=== PATIENT | male | born 1950 | race Caucasian/White ===

== ENCOUNTER → 2016-09-14 | Outpatient (CLI) | payer BC ==
[~2016-09-14] MED LIST: ADVIN25050 INH; AMIT25TA19 PO; ASPI81TA28 PO; ATOR-22 PO; GLUCTAB18 PO; INSU1INJ2 SC; INSUINJ4 SC; KETO1DRO13 OPB; LISI-725 PO; METO50TA7 PO; MISC1CAP60 PO; OMEG10007 PO; PRLSR20 PO; SPIR25TA PO; ZOLP10TA6 PO
== END | disposition home or self-care (01) ==
LOC: C.LAB 07:00
PROVIDERS: ATTEND Physician Assistant
DX: R19.7 Diarrhea, unspecified (principal)

== ENCOUNTER → 2016-10-15 | Outpatient (CLI) | payer BC ==
[2016-10-15 10:55] LABS: BASO % 0.5 %; BASO ABS # 0.03 K/uL (0-0.2); COMPLETE YES; EOS % 2.9 %; HEMATOCRIT 39.8 % (42-52); IG% 0.4 %; LYMPH % 32.8 %; MEAN CELL VOLUME 89.8 fL (80-100); MEAN CORPUSCULAR HEMOGLOBIN 31.2 pg (25-34); MEAN CORPUSCULAR HGB CONC 34.7 g/dl (32-36); MEAN PLATELET VOLUME 9.3 fL (7.4-10.4); MONO % 7.8 %; NEUT % 55.6 %; PLATELET COUNT 215 K/uL (130-400); RED BLOOD COUNT 4.43 M/uL (4.7-6.1); WHITE BLOOD COUNT 5.49 K/uL (4.8-10.8)
[2016-10-15 11:17] LABS: ALT/SGPT 57 U/L (12-78); AST/SGOT 20 U/L (15-37); BLOOD UREA NITROGEN 17 mg/dl (7-18); BUN/CREATININE RATIO 15.1 (10-20); CALCIUM 8.7 mg/dl (8.5-10.1); CARBON DIOXIDE 23 mmol/L (21-32); CHLORIDE 108 mmol/L (98-107); GLUCOSE 113 mg/dl (70-99); POTASSIUM 4.1 mmol/L (3.5-5.1); SODIUM 139 mmol/L (136-145)
[2016-10-15 11:22] LABS: ALB/GLOB RATIO 1.4 (0.9-2); ALKALINE PHOSPHATASE 55 U/L (45-117); CHOLESTEROL 187 mg/dl (0-200); CHOLESTEROL/HDL RATIO 4.5; HDL CHOLESTEROL 42 mg/dl; LDL CHOLESTEROL CALCULATED 122 mg/dl; TRIGLYCERIDES 114 mg/dl (0-150); VERY LOW DENSITY LIPOPROT CALC 23 mg/dl
[2016-10-15 11:35] LABS: ESTIMATED AVERAGE GLUCOSE 154 mg/dl; HA1C FLAG Normal (Normal)
--- NOTE | 2016-10-20 13:53 | CODING QUERY MEDICAL NECESSITY ---
CQSUPPORTING DIAGNOSIS NEEDED A supporting diagnosis is required for the test/procedure performed on this patient in order for us to be reimbursed by the patient's insurance. Please provide a supporting diagnosis for the following test/procedure listed below next to the test name along with your signature. *If there is no additional diagnosis for this patient that would support the following test/procedure please document that below next to the test/procedure. Test(s)/Procedure(s) that require a supporting diagnosis: DOS 10/15/16 PROSTATE SPECIFIC ANTIGEN Provider Signature: Date: Thank you Lizzie Ling [employer] Once completed, please kindly fax back to [phone] For questions please call [phone]
== END | disposition home or self-care (01) ==
LOC: C.LABBC 07:42
PROVIDERS: ATTEND Internal Medicine
DX: E11.42 Type 2 diabetes mellitus with diabetic polyneuropathy (principal); Z12.5 Encounter for screening for malignant neoplasm of prostate

== ENCOUNTER → 2017-05-31 | Outpatient (CLI) | payer OTHER ==
[~2017-05-31] MED LIST changes: -METO50TA7 PO; +METO50TA8 PO
--- NOTE | 2017-05-31 16:51 | DIAGNOSTIC IMAGING REPORT ---
CHEST 2 VIEWS ROUTINE CLINICAL HISTORY: R05 [id number] URI (upper respiratory infection)[id number] dyspnea COMPARISON STUDY: 01/06/2015 FINDINGS: The bones soft tissues and hemidiaphragms are normal. The cardiomediastinal silhouette is normal. The lungs are clear. The pulmonary vasculature is normal. IMPRESSION: Negative chest. The above report was generated using voice recognition software. It may contain grammatical, syntax or spelling errors. Electronically signed by: Archie You M.D. 05/31/2017 4:49 PM Dictated Date/Time: 05/31/2017 4:49 PM
== END | disposition home or self-care (01) ==
LOC: C.RADBC 16:07
PROVIDERS: ATTEND Internal Medicine
DX: J06.9 Acute upper respiratory infection, unspecified (principal); R05 Cough

== ENCOUNTER → 2017-10-16 | Outpatient (CLI) | payer OTHER | END | disposition home or self-care (01) | LOC: C.LABSPEC 10:45 | PROVIDERS: ATTEND Physician Assistant Medical | DX: R19.7 Diarrhea, unspecified (principal) ==

== ENCOUNTER 2018-07-06 05:21 | Inpatient (IN) ==
--- NOTE | 2018-06-19 08:59 | PAT Medication Instructions ---
Medication Instructions Date of Service June 19, 2018 Home Medications amitriptyline 25 mg PO QDL ascorbic acid (vitamin C) [Vitamin 1 dose PO TID aspirin [Aspir-81] 81 mg PO TID atorvastatin 20 mg PO PM calcium carbonate-vitamin D3 1 tab PO TID cetirizine [Zyrtec] 1 dose PO QAM fluticasone propion-salmeterol 1 inh INHALATION BID fluticasone propionate [Flonase 2 spray INTRANASAL BID insulin aspart U-100 [Novolog 10 - 15 unit SUBCUT TID PRN insulin glargine [Basaglar KwikPen 18 unit SUBCUT BID lisinopril [Zestril] 20 mg PO QAM metoprolol succinate [Toprol XL] 50 mg PO QAM omega 9-deq-ziq-fish oil [Fish Oil] 1 cap PO TID omeprazole magnesium [Prilosec OTC] 20 mg PO QDL saw palmetto 1 dose PO QDL spironolactone 25 mg PO QAM ASK your prescriber and surgeon aspirin [Aspir-81] 81 mg PO TID STOP taking 2 weeks before surgery (or as soon as possible if surgery is within 2 weeks) omega 6-qfe-utz-fish oil [Fish Oil] 1 cap PO TID saw palmetto 1 dose PO QDL DO NOT take the morning of surgery ascorbic acid (vitamin C) [Vitamin 1 dose PO TID calcium carbonate-vitamin D3 1 tab PO TID cetirizine [Zyrtec] 1 dose PO QAM insulin aspart U-100 [Novolog 10 - 15 unit SUBCUT TID PRN lisinopril [Zestril] 20 mg PO QAM spironolactone 25 mg PO QAM Take morning of surgery With a small sip of water, OTHERWISE NOTHING TO EAT OR DRINK AFTER MIDNIGHT: amitriptyline 25 mg PO QDL fluticasone propion-salmeterol 1 inh INHALATION BID fluticasone propionate [Flonase 2 spray INTRANASAL BID metoprolol succinate [Toprol XL] 50 mg PO QAM omeprazole magnesium [Prilosec OTC] 20 mg PO QDL Take evening before surgery ascorbic acid (vitamin C) [Vitamin 1 dose PO TID atorvastatin 20 mg PO PM calcium carbonate-vitamin D3 1 tab PO TID fluticasone propion-salmeterol 1 inh INHALATION BID fluticasone propionate [Flonase 2 spray INTRANASAL BID insulin aspart U-100 [Novolog 10 - 15 unit SUBCUT TID PRN (if needed) insulin glargine [Basaglar KwikPen 18 unit SUBCUT BID Insulin Dependent Diabetic Patients * Test your blood sugar the morning of surgery * If Blood Sugar is GREATER THAN 150, take HALF of your regular dose of: insulin glargine [Basaglar KwikPen take 9 units * If Blood Sugar is LESS THAN 150, DO NOT TAKE ANY: insulin glargine [Basaglar KwikPen Other Notes If you have any questions please call us at [phone] or [phone] or [phone] or [phone]
--- NOTE | 2018-06-19 09:15 | Anesthesiology Consultation ---
Date of Service June 19, 2018 Assessment & Plan (1) Encounter for pre-operative examination: Chart Review Chart Review: Patient seen in Pre Admission Testing Consults Requested none Teaching & Discussion Pre-Anesthesia Teaching/Discussion Notes: Instructed NPO after midnight before surgery, except medications with 15 cc of water. Medication instructions provided according to the PAT guidelines. History Surgery Operation Date: 07/06/18 12:30 Proposed Procedures p Left Total Knee Arthroplasty - Rich Espinoza MD Height/Weight Height: 5 ft 11 in Weight: 99.6 kg Allergies Allergy/AdvReac Type Severity Reaction Status Date / Time latex Allergy Unknown Rash Verified 06/12/18 09:04 nickel Allergy Unknown "SKIN Verified 06/12/18 09:54 BUBBLES UP" Penicillins Allergy Unknown "HIVES IN Verified 06/12/18 09:11 EARS" acetaminophen [From Vicodin] AdvReac Unknown "SWEATY, Verified 06/12/18 09:53 FAINTY" adhesive AdvReac Unknown RED ITCHY Verified 06/12/18 09:06 SKIN, RASH hydrocodone [From Vicodin] AdvReac Unknown "SWEATY, Verified 06/12/18 09:53 FAINTY" meperidine AdvReac Unknown VOMITS Verified 06/12/18 09:04 metronidazole AdvReac Unknown Diarrhea Verified 06/12/18 09:04 Preston Pepper Allergy Unknown VOMITS Uncoded 06/12/18 09:04 RED CONTRAST AdvReac Unknown VOMITS Uncoded 06/12/18 09:08 Medications Home Medications Medication Instructions Recorded Confirmed Last Taken amitriptyline 25 mg PO QDL 06/12/18 06/12/18 06/11/18 ascorbic acid (vitamin C) [Vitamin 1 dose PO TID 06/12/18 06/12/18 Unknown C] aspirin [Aspir-81] 81 mg PO TID 06/12/18 06/12/18 06/12/18 atorvastatin 20 mg PO PM 06/12/18 06/12/18 06/11/18 calcium carbonate-vitamin D3 1 tab PO TID 06/12/18 06/12/18 06/12/18 [Caltrate with Vitamin D3] cetirizine [Zyrtec] 1 dose PO QAM 06/12/18 06/12/18 06/12/18 fluticasone propion-salmeterol 1 inh INHALATION BID 06/12/18 06/12/18 Unknown [Advair Diskus] fluticasone propionate [Flonase 2 spray INTRANASAL BID 06/12/18 06/12/18 06/12/18 Allergy Relief] insulin aspart U-100 [Novolog 10 - 15 unit SUBCUT TID PRN 06/12/18 06/12/18 Unknown Flexpen U-100 Insulin] insulin glargine [Basaglar KwikPen 18 unit SUBCUT BID 06/12/18 06/12/18 06/12/18 U-100 Insulin] lisinopril [Zestril] 20 mg PO QAM 06/12/18 06/12/18 06/12/18 metoprolol succinate [Toprol XL] 50 mg PO QAM 06/12/18 06/12/18 06/12/18 omega 9-wnb-qfc-fish oil [Fish Oil] 1 cap PO TID 06/12/18 06/12/18 06/12/18 omeprazole magnesium [Prilosec OTC] 20 mg PO QDL 06/12/18 06/12/18 06/11/18 saw palmetto 1 dose PO QDL 06/12/18 06/12/18 06/11/18 spironolactone 25 mg PO QAM 06/12/18 06/12/18 06/12/18 arginine (L-arginine) 500 mg PO QDL 06/19/18 06/19/18 Unknown Past Medical History Medical History Acid reflux Asthma "EXCERCISE ASTHMA" Diabetes Fatty pancreas History of blood clots "90% FEMORAL VEIN CLOTTED UP" - RIGHT LEG - 2008 History of cardiomyopathy HX OF "IDIOPATHIC CARDIOMYOPATHY DOWNGRADED IN 2002 TO HYPERTENSION" History of chemotherapy History of colon cancer History of depression History of pulmonary embolism 2008 Kidney cysts SCAR TISSUE BOTH KIDNEYS Neuropathy Osteoarthritis Torn ACL LEFT KNEE Past Surgical History Surgical History History of arthroscopy of left knee X3 History of bilateral cataract extraction History of cardiac cath 1997 - [place], DX CARDIOMYOPATHY History of colon resection History of colonoscopy MULTIPLE History of knee surgery X4 RIGHT History of lipoma History of sinus surgery History of total right knee replacement (TKR) Past Anesthesia History No Hx of Anesthesia Complications and No Family Hx of Anesthesia Complications History of PONV No Motion Sickness Screening History of Motion Sickness: No Social History Smoking Status: Former smoker tobacco type: cigarettes Do You Dip or Chew Tobacco: No Smoking End Date: HX SMOKING 18 YRS - QUIT AGE 38 Hx Alcohol Use: Yes Alcohol type: beer alcohol intake frequency: a few times a month Hx Substance Use: No substance use type: does not use Exercise / Class Metabolic Activity II 4-5 Yardwork/Stairs/Walk up hill (Walks 2-3 miles per day. Does recumbant bike daily. Able to climb FOS. Denies CP or SOB. ) Review of Systems Patient denies chest pain, shortness of breath, dyspnea on exertion, cough, wheezing, palpitations. +(knees, left elbow) +acid reflux (controlled with medication) Physical Exam Vital Signs BP: 131/79 P: 67 R: 16 T: 97.9 SPO2: 97% on RA ENMT Thyromental Distance: > or= 3.5 Finger Breadths (3.5) Mallampati Class: I Neck normal visual inspection, trachea midline and + facial hair (Advised); neck extension not limited Respiratory normal respiratory effort Auscultation: lungs clear to auscultation bilaterally Cardiovascular Rate/Rhythm: regular rate and regular rhythm Heart Sounds: no murmur Vessels: no carotid bruit Neurologic moves all extremities Psychiatric Orientation: alert and oriented x 3 Testing Electrocardiogram Date: 06/19/18 Findings: + NSR @ (67) and + no change from (12/03/14) Chest X-Ray Date: 06/19/18 Findings: + NAD FINDINGS: The lungs are clear. Cardiac silhouette is normal in size. No pleural effusions. No pneumothorax. IMPRESSION: No acute process. Laboratory Results 06/19/18 09:50 06/19/18 09:50 Blood Type A Positive 06/19/18 09:50 Antibody Screen NEGATIVE 06/19/18 09:50 PT 10.3 Seconds (9.0-12.0) 06/19/18 09:50 INR 1.0 (0.9-1.1) 06/19/18 09:50 APTT 22.2 Seconds (21.0-31.0) 06/19/18 09:50 Hemoglobin A1c 7.1 % (4.5-5.6) H 06/19/18 09:50
--- NOTE | 2018-06-19 10:24 | XRay Report ---
XR chest Pre-admission PA/Lat HISTORY: Preop. COMPARISON: Chest 05/31/2017. FINDINGS: The lungs are clear. Cardiac silhouette is normal in size. No pleural effusions. No pneumot horax. IMPRESSION: No acute process. Electronically signed by: Lalo Knight M.D. 06/19/2018 10:22 AM
[2018-06-19 10:33] LABS: Basophils # (auto) 0.02 K/uL (0-0.2); Basophils % (auto) 0.3 %; Eosinophils # (auto) 0.11 K/uL (0-0.5); Eosinophils % (auto) 1.8 %; Hematocrit (blood only) 40.8 % (42-52); Hemoglobin 14.5 g/dL (14.0-18.0); Immature Granulocytes # (auto) 0.01 K/uL (0.00-0.02); Immature Granulocytes % (auto) 0.2 %; Lymphocytes # (auto) 1.95 K/uL (1.2-3.4); Lymphocytes % (auto) 31.7 %; Mean Corpuscular Hgb Conc 35.5 g/dL (32-36); Mean Corpuscular Volume 88.5 fL (80-100); Mean Platelet Volume 9.1 fL (7.4-10.4); Monocytes # (auto) 0.42 K/uL (0.11-0.59); Monocytes % (auto) 6.8 %; Neutrophils # (auto) 3.65 K/uL (1.4-6.5); Neutrophils % (auto) 59.2 %; Platelet Count 213 K/uL (130-400); RDW Coefficient of Variation 13.1 % (11.5-14.5); RDW Standard Deviation 41.9 fL (36.4-46.3); Red Blood Count 4.61 M/uL (4.7-6.1); White Blood Count 6.16 K/uL (4.8-10.8)
[2018-06-19 10:41] LABS: BUN Creatinine Ratio 17.4 (10-20); Blood Urea Nitrogen 18 mg/dl (7-18); Carbon Dioxide 27 mmol/L (21-32); Chloride 106 mmol/L (98-107); Creatinine Clr Calc Pharmacy 86.5 ml/min; Est GFR (African American) 89.4; Est GFR (Non-African American) 77.1; Glucose 139 mg/dl (70-99); Potassium 4.7 mmol/L (3.5-5.1); Sodium 136 mmol/L (136-145)
[2018-06-19 10:44] LABS: C Reactive Protein < 0.29 mg/dl (0-0.29)
[2018-06-19 10:54] LABS: Partial Thromboplastin Ratio 0.8; Partial Thromboplastin Time 22.2 Seconds (21.0-31.0); Prothrombin Time 10.3 Seconds (9.0-12.0)
[2018-06-19 12:25] LABS: Estimated Average Glucose 157 mg/dl; Hemoglobin A1C 7.1 % (4.5-5.6)
--- NOTE | 2018-06-29 08:54 | History and Physical Report ---
DATE OF ADMISSION: 07/06/2018 CHIEF COMPLAINT: Left knee pain, discomfort and instability. 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 He is referred by my partner Dr. Elam. He has got a long history of knee problems and actually had 5 knee surgeries on the right side and eventually had a knee replacement done by Dr. Walter in 2006. He has done pretty well from this side. With respect to his left knee, he injures back in 1968 when he got hit from behind playing football in high school. He tore his meniscus in 1995 and had first operation in [place]. He had another surgery on this knee by Dr. Cool in 2004 and a third knee surgery done by Dr. Elam in 2005. He has done okay, but continues to have persistent pain, discomfort and instability that he describes it has gotten worse over time. 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 The knee gives out on him. When he twisted, it swells up and get sore for about 3 or 4 weeks and then calms down. He has had multiple conservative modalities including injections which provided temporary relief only. He is trying to stay active, but it is becoming more difficult doing that. He takes various anti-inflammatories with minimal relief. He would like to proceed with definitive treatment. PAST MEDICAL HISTORY: Significant for: 1. Colon cancer stage III in remission without recurrence. 2. History of cardiomyopathy, which is now resolved. 3. 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 4. Low back pain. 5. Torticollis. 6. Gastroesophageal reflux disease. PAST SURGICAL HISTORY: Previous surgeries include: 1. Left knee surgery x3 as described above. 2. Right knee surgery x5. 3. Colon resection. ALLERGIES: PENICILLIN, DEMEROL, FLAGYL, LATEX AND NICKEL. CURRENT MEDICINES: Include: 1. Metoprolol 50 mg a day. 2. Lipitor 20 mg a day. 3. Spironolactone 25 mg. 4. Lisinopril 20 mg. 5. Omeprazole 20 mg. 6. Zyrtec 10 mg. 7. Advair. 8. Amitriptyline. 9. NovoLog insulin. 10. Basaglar. SOCIAL HISTORY: A 67-year-old male. 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 FAMILY HISTORY: Significant for heart disease, diabetes, pancreatic cancer. REVIEW OF SYSTEMS: Significant for colon cancer. He does have a history of 1 blood clot in his leg with his colon surgery, but nothing since. No known clotting disorders. He has been through knee replacement on this side without anticoagulation. Denies any chest pain or shortness of breath. PHYSICAL EXAMINATION: GENERAL: Reveals a pleasant, middle-aged male. Looks to be in good health. HEENT: Benign. NECK: Supple, no lymphadenopathy. LUNGS: Clear to auscultation. HEART: Regular rate and rhythm. ABDOMEN: Soft, nontender, nondistended. EXTREMITIES: Grossly neurovascularly intact except as follows: Examination of the left knee reveals the patient walks independently. Walks with just a slight bit of a limp. He has got a trace knee effusion. His range of motion is 0-125 degrees. He does have a positive Dnaae and a grade 2 pivot. No varus or valgus instability. Scott's causes pain, but no mechanical symptoms. He has got no pain with hip motion. X-RAYS: X-rays of the left knee from previous reviewed. Shows some moderate DJD of the knee. He has got some tibial femoral subluxation. He has got chronic chondrocalcinosis. ASSESSMENT: A 67-year-old gentleman with a history of colon cancer in the past as well as a right knee replacement with persistent pain and discomfort in his left knee with a chronic ACL instability and moderate knee arthritis. He has failed all conservative care. He has through 3 previous surgeries on this knee and would like more definitive treatment. His right knee replaced years ago and has done well from this and would like to have his left knee replacement. PLAN: We are going to take him to the operating room and do a left total knee replacement. The risks and benefits of this procedure were explained to the patient including but not limited to DVT, PE, , infection, neurological injury, vascular injury, bleeding problem, pain, limited range of motion, stiffness, failure to relieve symptoms, incomplete relief of symptoms, need for further surgery in the future, fracture, leg length inequality, nerve palsy, persistent instability and incomplete relieve of all symptoms. The patient understands and desires to proceed. Informed consent was obtained. The patient does have this apparent NICKEL ALLERGY. We will use a [employer] knee to avoid any medical issues. We will likely put some vancomycin in his cement due to his multiple surgeries. He is planning to be discharged to home using [facility] home health program. We did talk to him about taking his metoprolol the morning of surgery. We will hold the lisinopril.
--- OUTSIDE RECORDS SUMMARY | 2018-07-06 05:24 | External Medical Summary | Continuity of Care Document ---
:1950 Author Name Nora Barrett, Provider Address Unavailable Unavailable , Care Team Providers Name Role Phone Efrain [email or web address] [email or web address], [email or web address] Efrain Stack M.D. 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) Hyperlipidemia (272.4) (E78.5) Hypertension (401.9) (I10) Cardiomyopathy, nonischemic (425.4) (I42.8) Obstructive sleep apnea (327.23) (G47.33) Cyst of kidney, acquired (593.2) (N28.1) GERD without esophagitis (530.81) (K21.9) Osteoarthritis of knee (715.36) (M17.10) Actinic keratosis (702.0) (L57.0) Peripheral neuropathy (356.9) (G62.9) Exercise-induced asthma (493.81) (J45.990) Insomnia (780.52) (G47.00) Sensory problems with limbs (V49.3) (R20.9) Allergies and Adverse Reactions Demerol TABS (Allergy) Flagyl TABS (Allergy) metFORMIN HCl TABS (Allergy) Reaction: F atigue Penicillins (Allergy) Reaction: Rash Red Dye (Allergy) Medications Advair Diskus 250-50 MCG/DOSE Inhalation Aerosol Powder Breath Activated; INHALE 1 PUFF EVERY 12 HOURS. Arnold Stack 60 Inhaler Pack Quantity: 3 Refills: 3 OneTouch Ultra Blue In Vitro Strip; USE 6 STRIP Daily Arnold Lin rd Start: 06-Dec-2012 Quantity: 600 Refills: 3 Spironolactone 25 MG Oral Tablet; TAKE 1 TABLET DAILY. Arnold Hanks Quantity: 90 Refills: 3 Lisinopril 10 MG Oral Tablet; TAKE 1 TABLET DAILY. Arnold Stack Quantity: 90 Refills: 3 Metoprolol Succinate ER 50 MG Oral Table t Extended Release 24 Hour; TAKE 1 TABLET DAILY. Arnold Stack Quantity: 90 Refills: 3 Atorvastatin Calcium 20 MG Oral Tablet; TAKE ONE TABLE T BY MOUTH ONCE DAILY. Arnold Stack Quantity: 90 Refills: 3 Omeprazole 20 MG Oral Capsule Delayed Release; TAKE 1 CAPSULE DAILY. Arnold Stack Quantity: 90 Refills: 3 Amitriptyline HCl - 25 MG Oral Tablet; Take 1 tablet daily Arnold Gan Quantity: 90 Refills: 1 ZyrTEC Allergy 10 MG Oral Tablet; TAKE 1 TABLET DAILY. Refills: 0 Basaglar KwikPen 100 UNIT/ML Subcutaneou s Solution Pen-injector; INJECT 12 UNIT Twice daily MARCELINA Stiles Start: 20-Feb-2017 Quantity: 3 5 x 3 ML Pen Refills: 3 Fluticasone Propionate 50 MCG/ACT Nasal Suspension; INSTILL 2 SQUIRT Twice daily Arnold Stack Start: 08-Oct-2015 Quantity: 3 16 GM Bottle Refills: 3 Sildenafil Citrate 100 MG Oral Tablet; TAKE 1 TABLET D AILY 1 HOUR BEFORE NEEDED Arnold Stack Start: 21-Mar-2012 Quantity: 10 Refills: 5 OneTouch Basic System w/Device Kit; USE DIRECTED. Arnold Wen Start: 06-Dec-2012 Quantity: 1 Refills: 0 Pen [place] 316" 31G X 5 MM; injects 5x day Arnold Stack Start: 06-Dec-2012 Quantity: 5 100 Unit Box Refills: 3 OneTouch Lancets MISC; Tests 5 x day Arnold Stack Sta rt: 06-Dec-2012 Quantity: 500 Refills: 3 NovoLOG FlexPen 100 UNIT/ML Subcutaneous Solution Pen-injector; INJECT 10-12 UNITS FOUR TIMES DAILY IF >130 Arnold Stack Start: 18-Feb-2014 Quantity: 2 5 x 3 ML Pen Refills: 3 Procedures History of Complete Colonoscopy Status: Completed History of Colon Surgery Status: Complet ed History of Knee Replacement Status: Comp leted History of Sinus Surgery Status: Complet ed Immunizations Pneumo On: 13-Feb-2003 0:00 Td On: 29-Jul-2011 Influenza Comments:Fall 2012 Zoster (Zostavax) On: 06-Dec-2012 11:42 Lot #: [id number], [employer] Zoster (Zostavax) On: 06-Dec-2012 16:05 Lot #: [id number], [employer] Prevnar 13 Intramuscular Suspension On: 12-Sep-2014 8:48 Lot #: [id number], [employer] [place] Influenza On: Nov-2014 Fluzone High-Dose 0.5 ML Intramuscular Suspension Pref illed Syringe On: 18-Nov-2017 Pneumovax 23 25 MCG/0.5ML Injection Injectable On: 24-Nov-19 18 15:31 Lot #: [id number], [employer] Family History Father Family history of Father At Age ___ Status: Active Brother Family history of Cardiomyopathy Status: Active Family history of Diabetes Mellitus (V18.0) Status: Active Social History - Smoking Status Former smoker Plan of Treatment Planned Encounters Appointment; Efrain Stack M.D. Start: 25-Dec-2018 8:15 Re quest Planned Observations Planned Goals not documented Results No Known Results Results not documented Encounters Appointment; Efrain Stack M.D. 24-May-2018 14:45 Encounter Diagnosis: Problem not documented Appointment; Efrain Stack M.D. 23-Nov-2017 14:30 Encounter Diagnosis: Problem not documented Appointment; Efrain Stack M.D. 31-May-2017 15:15 Encounter Diagnosis: Problem not documented Appointment; Efrain Stack M.D. 26-Apr-2017 16:00 Encounter Diagnosis: Problem not documented Appointment; Efrain Stack M.D. 13-Oct-2016 10:30 Encounter Diagnosis: Problem not documented Appointment; Sylvia Matthew PA-C 13-Sep-2016 11:30 Encounter Diagnosis: Problem not documented Appointment; Erfain Stack M.D. 25-Dec-2018 8:15 Encounter Diagnosis: Problem not documented
[2018-07-06] MEDS ORDERED: LR 60ML/HR IV SCH (06:00)
[2018-07-06] MEDS ORDERED: SCOPOLAMINE 1.5 MG TDSY TD SCH (06:00)
[2018-07-06] MEDS ORDERED: FAMOTIDINE 20 MG TAB PO SCH (06:00)
[2018-07-06] MEDS ORDERED: LR 500ML BOLUS, THEN 15ML/HR IV SCH (06:00)
[2018-07-06] MEDS ORDERED: GABAPENTIN 300 MG PO SCH (06:00)
[2018-07-06] MEDS ORDERED: METOCLOPRAMIDE HCL 10 MG TABLET PO SCH (06:00)
[2018-07-06] MEDS ORDERED: BUPIVACAINE LIPOSOME/PF 266 MG, BUPIVACAINE/EPINEPHRINE 50 ML, SODIUM CHLORIDE 0.9% 30 ... INFIL SCH (06:00)
[2018-07-06] MEDS ORDERED: CEFAZOLIN 2000MG 2,000 MG/15 ML SYR IV SCH (06:00)
[2018-07-06] MEDS ORDERED: ACETAMINOPHEN 500 MG TAB PO SCH (06:00)
[2018-07-06] MEDS ORDERED: BUPIVACAINE 0.5 % 5 MG/1 ML PF 10ML VIAL ONE (06:25)
[2018-07-06] MEDS ORDERED: ROPIVACAINE 0.5% 5 MG/ML 30 ML VIAL ONE (06:25)
[2018-07-06] MEDS ORDERED: PROPOFOL IV EMULSION 10 MG/ML 20 ML VIAL IV ONE (06:34)
[2018-07-06] MEDS ORDERED: LIDOCAINE HCL 2% 2 ML VIAL/AMP(20MG/ML) INFIL ONE (06:34)
[2018-07-06] MEDS ORDERED: ePHEDrine sulfate 50 MG/ML AMP IV PRN (06:36)
[2018-07-06] MEDS ORDERED: ONDANSETRON INJ 2 MG/ML 2 ML VIAL IV PRN ×2 (06:36→10:34)
[2018-07-06] MEDS ORDERED: ATROPINE SULFATE 0.1 MG/ML 10ML SYR IV PRN (06:36)
[2018-07-06] MEDS ORDERED: SODIUM CHLORIDE 0.9% PF 50 ML VIAL ONE (06:38)
[2018-07-06] MEDS ORDERED: BACITRACIN INJ 50,000 UNIT VIAL ONE (06:38)
[2018-07-06] MEDS ORDERED: BUPIVACAINE LIPOSOME 1.3% 266 MG/20 ML VIAL ONE (06:38)
[2018-07-06] MEDS ORDERED: BUPIVACAINE 0.25% 30 ML VIAL ONE (06:39)
[2018-07-06] MEDS ORDERED: EPINEPHrine INJ 1 MG/ML AMP ONE (06:39)
[2018-07-06] MEDS ORDERED: MIDAZOLAM HCL 1 MG/ML 2ML VIAL ONE (06:39)
--- NOTE | 2018-07-06 06:44 | History & Physical Bridge Note ---
Date of Service July 06, 2018 History & Physical Bridge Note I have examined the patient, reviewed the History & Physical and in the interval since the performance of the History & Physical I have noted the following changes of clinical significance: no changes noted
[2018-07-06] MEDS ORDERED: VANCOMYCIN HCL 1000MG/20ML VIAL ONE (07:23)
--- NOTE | 2018-07-06 08:41 | Post Operative Brief Note ---
Immediate Post Op Note v1 Date of Surgery July 06, 2018 Pre & Post Diagnosis Operation Date: 07/06/18 07:00 Pre-Op Diagnosis: Left Knee Degenerative Joint Disease Post-Op Diagnosis: Left Knee Degenerative Joint Disease Procedure Operation Date: 07/06/18 07:00 Actual Procedures p Left Total Knee Arthroplasty(Left) - Rich Espinoza MD Surgeon Rich Espinoza MD Acid Operator Dori, PAC Estimated Blood Loss 50 Findings Consistent with Post-Op Diagnosis Fluids 1500 cc Specimens Left Knee Drains Ellis Catheter (16 Polish Latex-free ellis inserted by Luis Alberto Meadows PA-C without difficulty. Clear yellow urine obtained, Anesthesia to monitor) Anesthesia Type Spinal MAC Complications none Disposition Accompanied Patient To Recovery: No Disposition: Recovery Room
--- NOTE | 2018-07-06 09:25 | XRay Report ---
LEFT KNEE 2 VIEWS History: Left total knee arthroplasty. Degenerative arthritis. Postop. FINDINGS: The patient is status post a left total knee arthroplasty. The hardware is intact. No fract ure or dislocation. Skin tania and surgical drains are in place. IMPRESSION: Left total knee arthroplasty. No evidence for hardware complication. Electronically signed by: Lalo Knight M.D. 07/06/2018 9:23 AM
[2018-07-06] MEDS ORDERED: GLUCOSE 10 TABS/TUBE PO PRN (10:34)
[2018-07-06] MEDS ORDERED: GLUCOSE 40% GEL 15 GM TUBE PO PRN (10:34)
[2018-07-06] MEDS ORDERED: PHARMACY GLYCEMIC MGMT CONSULT STA (10:34)
[2018-07-06] MEDS ORDERED: HYDROmorphone INJ 0.5 MG/0.5 ML SYR IV PRN (10:34)
[2018-07-06] MEDS ORDERED: GLUCAGON FOR INJ 1 MG VIAL SQ PRN (10:34)
[2018-07-06] MEDS ORDERED: METOCLOPRAMIDE HCL INJ 5 MG/ML 2 ML VIAL IV PRN (10:34)
[2018-07-06] MEDS ORDERED: DEXTROSE 50% 50 ML SYRINGE IV PRN (10:34)
[2018-07-06] MEDS ORDERED: CARBOHYDRATES FOR HYPOGLYCEMIA PO PRN (10:34)
[2018-07-06] MEDS ORDERED: SODIUM CHLORIDE 0.9% 1000ML 1,000 ML IV SCH (10:34)
[2018-07-06] MEDS ORDERED: ASCORBIC ACID PO SCH (10:34)
[2018-07-06] MEDS ORDERED: NALOXONE HCL 0.4 MG/1 ML VIAL/CARP IV PRN (10:34)
[2018-07-06] MEDS ORDERED: ALUMINUM/MAGNESIUM SUSP 30 ML UDC PO PRN (10:34)
[2018-07-06] MEDS ORDERED: MAGNESIUM HYDROXIDE SUSP 30 ML UDC PO PRN (10:34)
[2018-07-06] MEDS ORDERED: TAMSULOSIN HCL 0.4 MG CAP PO PRN (10:34)
[2018-07-06] MEDS ORDERED: BISACODYL 10 MG SUPP PR PRN (10:34)
[2018-07-06] MEDS ORDERED: CETIRIZINE HCL 10 MG TABLET PO SCH (10:34)
--- NOTE | 2018-07-06 10:42 | Anesthesiology Progress Note ---
Date of Service July 06, 2018 Anesthesia Post Procedure Vital Signs Vital Signs: Temp Pulse Pulse Pulse Resp BP BP 07/06/18 10:32 67 16 123/81 07/06/18 09:50 68 14 07/06/18 09:46 67 13 106/68 07/06/18 09:45 66 13 07/06/18 09:41 67 17 111/65 07/06/18 09:36 68 14 126/70 07/06/18 09:35 69 13 07/06/18 09:31 68 16 111/69 07/06/18 09:30 36.4 C L 67 65 16 111/69 07/06/18 09:26 64 21 112/70 07/06/18 09:22 67 14 07/06/18 09:21 68 21 114/69 07/06/18 09:20 66 18 07/06/18 09:16 67 15 120/71 07/06/18 09:15 67 18 07/06/18 09:11 70 16 115/74 07/06/18 09:06 69 17 117/71 07/06/18 09:05 69 17 07/06/18 09:01 74 16 101/72 07/06/18 09:00 70 13 07/06/18 08:56 72 14 121/73 07/06/18 08:51 71 17 106/64 07/06/18 08:50 77 19 07/06/18 08:47 75 15 107/68 07/06/18 08:46 36.7 C 74 16 107/68 07/06/18 05:47 36.6 C 67 18 138/83 Pulse Ox 07/06/18 10:32 97 07/06/18 09:50 96 07/06/18 09:46 98 07/06/18 09:45 99 07/06/18 09:41 98 07/06/18 09:36 98 07/06/18 09:35 98 07/06/18 09:31 97 07/06/18 09:30 99 07/06/18 09:26 99 07/06/18 09:22 99 07/06/18 09:21 98 07/06/18 09:20 98 07/06/18 09:16 97 07/06/18 09:15 98 07/06/18 09:11 96 07/06/18 09:06 97 07/06/18 09:05 97 07/06/18 09:01 95 07/06/18 09:00 95 07/06/18 08:56 96 07/06/18 08:51 97 07/06/18 08:50 94 07/06/18 08:47 95 07/06/18 08:46 93 07/06/18 05:47 92 Pain Intensity Left Knee: Pain Intensity: 0 Transfer of Care Handoff Completed per policy Notes Mental Status: alert / awake / arousable Patient Amnestic to Procedure: Yes Nausea / Vomiting: adequately controlled Pain: adequately controlled Airway Patency, RR, SpO2: stable & adequate BP & HR: stable & adequate Hydration State: stable & adequate Neuraxial Anesthesia: was administered and sensory block is resolving Anesthetic Complications: no major complications apparent and Pt Satisfied with anesthetic care
[2018-07-06] MEDS ORDERED: PHARMACY GLYCEMIC MGMT CONSULT PRN (10:48)
--- NOTE | 2018-07-06 11:26 | Pharmacy Report ---
Glycemic Control Consultation - Date of Service July 06, 2018 - Scope Scope: Glycemic Pharmacist consulted by Dr Espinoza on 07/06/18 for glycemic control and to write orders per [facility] inpatient glycemic control protocol - Objective Weight: 97.7 kg Accuchecks BSG (last 24hrs): 07/06/18 07/06/18 05:45 09:13 POC Glucose 169 H 129 H HbA1c: Hemoglobin A1c 7.1 % (4.5-5.6) H 06/19/18 09:50 - Recent Pertinent Medications Outpatient Anti-diabetic Regimen: * Basaglar 18 units BID + Novolog 10-15 units TIDM (has not been using) Risk Factors for Insulin Resistance: * Recent Surgery: POD 0 for L knee * Diet: T2DM - Assessment & Plan Assessment & Plan: ASSESSMENT: * Mr Kelsey is a 67 y/o M with a PMH of well controlled T2DM who presents for L knee surgery with Dr Espinoza. Patient did not receive steroids in surgery. His A1C is well controlled. 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 The patient has also not been utilizing Novolog since basaglar increased to 18 units BID. * Estimate that this is the patient's basal rate (36 units). This correlates to weight-based stress of 2. Will provide this stress for Novolog dosing. For Lantus, will provide a scale of 0 units (in case patient's inhouse insulin needs drastically different), 14 units (a modest 20% reduction from home dose in case insulin needs are different), and full home dose of 18 units. * Goal is to have blood sugars below 150 mg/dL ideally but at least below 200 mg to help prevent infection post-operatively. PLAN FOR INPATIENT GLYCEMIC CONTROL: * Basal insulin * Lantus 0-18 units SQ BID (0 units if blood sugar under 120 mg/dL; 14 units if blood sugar 120-160 mg/dL; 18 units if blood sugar greater than 160 mg/dL) * Bolus insulin * NovoLog per scale ACHS or Q6hrs while NPO * Goal Range: Low 110 mg/dL - High 140 mg/dL * Correction Factor: 20 mg/dL/unit * Nutritional / Prandial insulin per carb ratio of 1 unit per 7 grams CHO consumed Recommendations for Outpatient Therapy * Recommend continuing home regimen as HbA1C well controlled. Thank you.
[2018-07-06] MEDS ORDERED: ARGININE 500 MG PO SCH (11:30)
[2018-07-06] MEDS: MULTIVITAMIN TAB PO SCH (11:48)
[2018-07-06] MEDS: SPIRONOLACTONE 25 MG TAB PO SCH (11:48)
[2018-07-06] MEDS: FLUTICASONE PROPIONATE NA SPR 16 GM BTL NAE SCH ×2 (11:48→21:25)
[2018-07-06] MEDS: DOCUSATE SODIUM 100 MG CAP PO SCH ×2 (11:48→21:25)
[2018-07-06] MEDS: LISINOPRIL 20 MG TAB PO SCH (11:48)
[2018-07-06] MEDS: FLUTICASONE/SALMETEROL 250/50 (ADVAIR) 14 PUFF/1 INHALER INH SCH ×2 (11:48→21:24)
[2018-07-06] MEDS: METOPROLOL SUCC 50MG EXT REL TAB PO SCH (11:48)
[2018-07-06] MEDS: AMITRIPTYLINE HCL 25 MG TAB PO SCH (11:49)
[2018-07-06] MEDS: PANTOprazole 40 MG TAB PO SCH (11:52)
[2018-07-06] MEDS: KETOROLAC TROMETHAMINE 15 MG/ML VIAL IV SCH ×3 (11:54→23:57)
[2018-07-06] MEDS: ASPIRIN 81 MG ECTAB PO SCH ×2 (12:41→21:25)
[2018-07-06] MEDS: CALCIUM 600MG + VIT D 400 IU TAB PO SCH ×2 (12:41→21:25)
[2018-07-06] MEDS: ACETAMINOPHEN 500 MG TAB PO SCH ×2 (12:41→21:25)
[2018-07-06] MEDS: INSULIN ASPART 100 UNITS/ML 3 ML PEN SC SCH ×3 (12:44→21:28)
[2018-07-06] MEDS: CHECK SCOPOLAMINE PATCH PLACEMENT SCH ×2 (15:29→23:58)
[2018-07-06] MEDS: CEFAZOLIN 2000MG 2,000 MG/15 ML SYR IV SCH ×2 (15:31→23:57)
[2018-07-06] MEDS: ASCORBIC ACID 500 MG TAB PO SCH (18:16)
[2018-07-06] MEDS: FERROUS GLUCONATE 324 MG TAB PO SCH (18:16)
[2018-07-06] MEDS: OXYCODONE HCL IR 5 MG TAB (IMMEDIATE RELEASE) PO PRN ×2 (18:20→23:57)
[2018-07-06] MEDS ORDERED: INSULIN GLARGINE SOLOSTAR 100 UNITS/ML 3 ML PEN SC SCH (21:00)
[2018-07-06] MEDS ORDERED: SENNA 8.6 MG TAB PO SCH (21:00)
[2018-07-06] MEDS ORDERED: ATORVASTATIN 20 MG TAB PO SCH (21:00)
[2018-07-06] MEDS: TAPENTADOL HCL ER 50 MG TABCR PO SCH (21:31)
--- NOTE | 2018-07-07 01:07 | Operative Report ---
DATE OF OPERATION: 07/06/2018 SURGEON: Rich Espinoza MD [employer]ILER [employer] ROOM OPERATOR: FRANCES Crowder PREOPERATIVE DIAGNOSES: 1. Left knee degenerative joint disease. 2. 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 POSTOPERATIVE DIAGNOSES: 1. Left knee degenerative joint disease. 2. 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 PROCEDURE PERFORMED: Left cemented posterior stabilized total knee arthroplasty. COMPLICATIONS: None. ESTIMATED BLOOD LOSS: 50 mL. FLUID REPLACEMENT: 1500 mL crystalloid fluid replacement. ANESTHESIA: Spinal with an adductor canal block. DRAINS: None. SPECIMENS: Left knee sent for pathology. TOURNIQUET TIME: Six minutes at 300 mmHg. OPERATIVE INDICATIONS: The patient is a 67-year-old very active gentleman who has had a history of multiple knee problems in the past. He underwent 5 right knee surgeries and eventually knee replacement about 12 years ago. He injured his left knee in high school and then had 3 subsequent surgeries on this knee as well. Over the past several years, he has developed increased pain, discomfort, swelling. He has got chronic instability in his knee and it swells up. X-ray shows some moderate DJD with some tibial femoral subluxation. He has failed conservative treatments really affecting his quality of life and he elected to have total knee arthroplasty. He was happy with his knee on the other side. He had failed less invasive surgery. The patient has a history of a questionable nickel allergy, so we used the Reyes and Nephew zirconium knee arthroplasty. OPERATIVE FINDINGS: Operative findings revealed moderate DJD, moderate size knee joint effusion. He has some grade 3 and some focal 4 changes throughout the knee. 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 He did not have any bony eburnation. OPERATIVE IMPLANTS: Operative implant system: 1. Reyes and Nephew Journey size 6 left zirconium posterior stabilized femoral component. 2. Reyes and Nephew size 4 tibial tray. 3. A 10 mm posterior stabilized polyethylene insert. 4. A 32 x 9 all poly patella. OPERATIVE PROCEDURE: The patient was taken to the operating room, identified and placed on the operative table in supine position. All contact areas were appropriately padded. IV antibiotics were provided by anesthesia team. A spinal anesthetic and adductor canal block had been provided in the holding area. Wood catheter was placed in sterile fashion. The left thigh tourniquet was then placed and the left lower extremity was then prepped and draped in the usual sterile fashion. His left leg was elevated and exsanguinated with Esmarch and tourniquet was placed at 300 mmHg. The anterior approach to the left knee was then performed through a longitudinal incision centered over the patella. Sharp dissection was carried through the subcutaneous tissues down to the level of the extensor mechanism. Dissection was carried out medially. The fat pad was resected from beneath the patellar tendon. The lateral patellofemoral ligament was released. The patella was everted and the knee was flexed. The osteophytes were taken off the distal femur. The ACL was chronically absent. The PCL was released from the distal femur and the tibia subluxated anteriorly. The external tibial alignment jig was then placed in the anterior face of the tibia and adjusted 8 mm medially. Proximal tibial cut was made to remove about 2-3 mm of bone from the most deficient aspect of the medial tibial plateau. The tibia was sized to a size 4. Attention was then drawn to the femur. The distal femur was entered with a sharp drill bit and the intramedullary canal was suctioned. A left 6-degree valgus cutting guide was placed. Distal femoral cutting block was pinned in place. Distal femoral cut was made to take an additional 2 mm of bone off the distal femur. The femur was then sized and we sized this to a size 6. We did downsize this slightly, but this is the maximum size we could use with the 4 tibial tray. The AP cutting guide was then pinned parallel to the epicondylar axis, which was about 4-1/2 degrees of external rotation. The posterior cut, posterior chamfer, and then anterior chamfer cuts were made. The knee was flexed. The remnants of the medial and lateral menisci were excised. The osteophytes were taken off the posterior aspect of the femur. A box cutting guide was placed and the box cut was performed. The trochlea was placed. The tibial tray was then pinned in maximum external rotation. The drill and stem punch were used to create a defect in the proximal tibia for the tibial tray. I then trialed the knee and a 10 mm insert fit most appropriately. Attention was then drawn to the patella. The patella was cleaned of all soft tissues. Patella thickness measured 23 mm in thickness, it was cut down to 14. It was sized to a size 32 patella. Lug holes were drilled for a 31 patella. The knee was taken through range of motion and patella tracked nicely with no thumbs test. Attention was then drawn toward placement of permanent components. All trial components were removed. Bone plug was placed in the distal femur to limit blood loss. A double batch of Palacos G cement was mixed. A Reyes and Nephew zirconium size 6 posterior stabilized femoral component, size 4 tibial tray, a 10 mm posterior stabilized polyethylene insert, and a 32 x 9 all poly patella were then cemented in place. Knee was brought out into full extension until the cement hardened. A final cement check was then performed. The pericapsular tissues were injected with a total of 100 mL of a combination of 20 mL of Exparel, 30 mL of normal saline, 50 mL of 0.25% Marcaine with epinephrine. The patient did not receive any tranexamic acid. The tourniquet was then let down for a final tourniquet time of 60 minutes. Hemostasis was assured with use of electrocautery. The extensor mechanism was then closed with a combination of #1 PDS suture and #1 Vicryl suture in a [id number] fashion. Extensor mechanism was checked and found to be intact. Subcutaneous tissues were then closed with #2 Dexon suture in buried interrupted fashion. Skin was closed with skin tania. Leg was then cleaned and dried and a sterile dressing of Xeroform, 4 x 4's, sterile cast padding and Vic bandage were applied. The patient was then transferred to the recovery room in stable condition. The patient tolerated the procedure well with no complications. All needle and sponge counts were correct at the end of the operation. I attest to the content of the Intraoperative Record and any orders documented therein. Any exceptions are noted below. MTDD
[2018-07-07] MEDS: KETOROLAC TROMETHAMINE 15 MG/ML VIAL IV SCH (05:31)
[2018-07-07] MEDS: ACETAMINOPHEN 500 MG TAB PO SCH (05:31)
[2018-07-07 06:27] LABS: Hematocrit (blood only) 33.7 % (42-52); Hemoglobin 12.1 g/dL (14.0-18.0); Mean Corpuscular Hgb Conc 35.9 g/dL (32-36); Mean Corpuscular Volume 88.9 fL (80-100); Mean Platelet Volume 8.9 fL (7.4-10.4); Platelet Count 188 K/uL (130-400); RDW Coefficient of Variation 13.3 % (11.5-14.5); RDW Standard Deviation 43.1 fL (36.4-46.3); Red Blood Count 3.79 M/uL (4.7-6.1); White Blood Count 12.15 K/uL (4.8-10.8)
[2018-07-07 07:00] LABS: BUN Creatinine Ratio 15.1 (10-20); Calcium 8.6 mg/dl (8.5-10.1); Creatinine Clr Calc Pharmacy 65.6 ml/min; Est GFR (African American) 64.7; Est GFR (Non-African American) 55.8; Potassium 4.1 mmol/L (3.5-5.1)
--- NOTE | 2018-07-07 08:04 | Anesthesiology Progress Note ---
Date of Service July 07, 2018 Anesthesia Post Procedure Vital Signs Vital Signs: Temp Pulse Pulse Pulse Resp BP BP 07/07/18 07:01 36.8 C 72 18 117/68 07/07/18 04:04 36.8 C 73 17 100/65 07/06/18 23:19 36.9 C 70 18 96/60 L 07/06/18 19:34 36.7 C 71 16 125/79 07/06/18 15:02 36.6 C 62 16 108/70 07/06/18 13:11 36.3 C L 69 18 116/72 07/06/18 12:05 36.4 C L 62 16 121/75 07/06/18 11:00 62 16 119/70 07/06/18 10:32 67 16 123/81 07/06/18 10:05 36.5 C 68 14 116/68 07/06/18 09:50 68 14 07/06/18 09:46 67 13 106/68 07/06/18 09:45 66 13 07/06/18 09:41 67 17 111/65 07/06/18 09:36 68 14 126/70 07/06/18 09:35 69 13 07/06/18 09:31 68 16 111/69 07/06/18 09:30 36.4 C L 67 65 16 111/69 07/06/18 09:26 64 21 112/70 07/06/18 09:22 67 14 07/06/18 09:21 68 21 114/69 07/06/18 09:20 66 18 07/06/18 09:16 67 15 120/71 07/06/18 09:15 67 18 07/06/18 09:11 70 16 115/74 07/06/18 09:06 69 17 117/71 07/06/18 09:05 69 17 07/06/18 09:01 74 16 101/72 07/06/18 09:00 70 13 07/06/18 08:56 72 14 121/73 07/06/18 08:51 71 17 106/64 07/06/18 08:50 77 19 07/06/18 08:47 75 15 107/68 07/06/18 08:46 36.7 C 74 16 107/68 Pulse Ox 07/07/18 07:01 95 07/07/18 04:04 92 07/06/18 23:19 95 07/06/18 19:34 97 07/06/18 15:02 99 07/06/18 13:11 99 07/06/18 12:05 99 07/06/18 11:00 100 07/06/18 10:32 97 07/06/18 10:05 98 07/06/18 09:50 96 07/06/18 09:46 98 07/06/18 09:45 99 07/06/18 09:41 98 07/06/18 09:36 98 07/06/18 09:35 98 07/06/18 09:31 97 07/06/18 09:30 99 07/06/18 09:26 99 07/06/18 09:22 99 07/06/18 09:21 98 07/06/18 09:20 98 07/06/18 09:16 97 07/06/18 09:15 98 07/06/18 09:11 96 07/06/18 09:06 97 07/06/18 09:05 97 07/06/18 09:01 95 07/06/18 09:00 95 07/06/18 08:56 96 07/06/18 08:51 97 07/06/18 08:50 94 07/06/18 08:47 95 07/06/18 08:46 93 Pain Intensity Left Knee: Pain Intensity: 6 Transfer of Care Handoff Completed per policy Notes Mental Status: alert / awake / arousable Patient Amnestic to Procedure: Yes Nausea / Vomiting: adequately controlled Pain: adequately controlled Airway Patency, RR, SpO2: stable & adequate BP & HR: stable & adequate Neuraxial Anesthesia: was administered and sensory block is resolving Anesthetic Complications: no major complications apparent Notes: POD #1, no complaints. Doing well.
--- NOTE | 2018-07-07 08:35 | Progress Note ---
DATE: 07/07/2018 SUBJECTIVE: A 67-year-old gentleman postop day 1 from a left knee replacement. He is doing remarkably well. Pain has been controlled. No chest pain or shortness of breath. Not feeling dizzy or lightheaded. OBJECTIVE: VITAL SIGNS: Temperature 36.8. Vital signs stable. GENERAL: Physical examination shows a pleasant, middle-aged male. He is walking around his room this morning on his own without a walker or cane. EXTREMITIES: His dressings in place. There is a little bit of bloody drainage anteriorly. He can do a good straight leg raise. He can dorsiflex and plantarflex his foot appropriately. He is neurologically intact. LABORATORY DATA: Hemoglobin 12.1, hematocrit 33.7, white cell count 12.15. Electrolytes are stable. ASSESSMENT: A 67-year-old gentleman postop day 1 from a left knee replacement, doing quite well. Pain is controlled. He is getting around quite well. PLAN: 1. DVT prophylaxis including thigh-high TEDs, SCDs, and aspirin twice a day. 2. PT/OT. Weight bear as tolerated. Left total knee protocol. 3. Pain control, doing pretty well with current pain regimen. 4. Disposition: He is hoping to be discharged to home with some home health today depending on how therapy goes.
[2018-07-07] MEDS: DOCUSATE SODIUM 100 MG CAP PO SCH (08:41)
[2018-07-07] MEDS: ASCORBIC ACID 500 MG TAB PO SCH (08:41)
[2018-07-07] MEDS: ASPIRIN 81 MG ECTAB PO SCH (08:41)
[2018-07-07] MEDS: SPIRONOLACTONE 25 MG TAB PO SCH (08:42)
[2018-07-07] MEDS: FERROUS GLUCONATE 324 MG TAB PO SCH (08:42)
[2018-07-07] MEDS: METOPROLOL SUCC 50MG EXT REL TAB PO SCH (08:42)
[2018-07-07] MEDS: CALCIUM 600MG + VIT D 400 IU TAB PO SCH (08:43)
[2018-07-07] MEDS: PANTOprazole 40 MG TAB PO SCH (08:44)
[2018-07-07] MEDS: MULTIVITAMIN TAB PO SCH (08:44)
[2018-07-07] MEDS: LISINOPRIL 20 MG TAB PO SCH (08:44)
[2018-07-07] MEDS: FLUTICASONE/SALMETEROL 250/50 (ADVAIR) 14 PUFF/1 INHALER INH SCH (08:46)
[2018-07-07] MEDS: FLUTICASONE PROPIONATE NA SPR 16 GM BTL NAE SCH (08:46)
[2018-07-07] MEDS: INSULIN ASPART 100 UNITS/ML 3 ML PEN SC SCH (08:50)
[2018-07-07] MEDS: TAPENTADOL HCL ER 50 MG TABCR PO SCH (08:55)
[2018-07-07] MEDS: OXYCODONE HCL IR 5 MG TAB (IMMEDIATE RELEASE) PO PRN (08:55)
[2018-07-07] MEDS ORDERED: INSULIN GLARGINE SOLOSTAR 100 UNITS/ML 3 ML PEN SC SCH ×2 (09:00→21:00)
[2018-07-07] MEDS ORDERED: CETIRIZINE HCL 10 MG TABLET PO SCH (09:00)
[2018-07-07] MEDS: AMITRIPTYLINE HCL 25 MG TAB PO SCH (10:34)
[2018-07-08] MEDS ORDERED: INSULIN GLARGINE SOLOSTAR 100 UNITS/ML 3 ML PEN SC SCH (09:00)
--- NOTE | 2018-07-10 18:02 | Discharge Summary ---
ADMITTING PHYSICIAN AND SURGEON: Dr. Rich Espinoza. ADMITTING DIAGNOSIS: Left knee degenerative joint disease and chronic anterior cruciate ligament deficiency. SURGERY PERFORMED: Left total knee arthroplasty. SECONDARY DIAGNOSES: Colon cancer, history of cardiomyopathy, chronic neuropathy, low back pain, torticollis, gastroesophageal reflux disease. CONSULTS: None obtained. HISTORY AND PHYSICAL EXAMINATION: Well documented in the patient's chart. HOSPITAL COURSE: The patient was admitted on 07/06/2018 and underwent total knee arthroplasty, tolerated the procedure well. There were no complications. He was transferred to the PACU postoperatively and later to the orthopedic for further care. He was given Ancef for antibiotic prophylaxis, SYL stockings, SCDs and aspirin for DVT prophylaxis. Hemoglobin, hematocrit and vital signs were monitored during his hospital stay and remained stable, did not require any blood transfusions. There were no complications. By postoperative day 1, he was tolerating a diabetic diet. Pain was controlled with oral pain medicine. He was participating in physical therapy. Postop day 1, he was discharged home, set up with home health services. He was given printed discharge instructions including new prescriptions for extra strength Tylenol and oxycodone. Continue his home medications, continue physical therapy, weightbearing as tolerated, SYL stockings. Follow up approximately 2 weeks postoperatively or sooner if there are any problems or concerns.
== END 2018-07-07 11:16 | disposition home health service (06) | DRG 470 ==
LOC: ASU 05:21 → 3E 08:46

== ENCOUNTER 2022-05-04 11:25 | Observation (INO) ==
[2022-05-04] MEDS ORDERED: SODIUM CHLORIDE 0.9% 500 ML IV STA (12:06)
--- NOTE | 2022-05-04 12:12 | Emergency Department Note ---
Impression & Plan Elevated troponin, Palpitations, Diaphoresis, SOB (shortness of breath) ED Provider Note NAME: BREA CRENSHAW AGE: 71 SEX: M : 1950 ARRIVES VIA: Walk-In INFORMANT: [Patient] ED PROVIDER(S): [Harvey Hogan MD] CHIEF COMPLAINT: Palpitations HISTORY OF PRESENT ILLNESS: The patient is a 71-year-old male with a history of cardiomyopathy who states that a week ago, he had an episode of palpitations. He felt fine shortly after and had no issues up until this morning. Earlier this morning, about 4 hours ago, he had an episode of palpitations while getting out of the shower. The episode lasted for maybe an hour and a half before he felt better. With the episode, he was sweaty and mildly short of breath and he felt somewhat anxious. Patient states that about an hour and 15 minutes ago, he began having another episode of palpitations where he again felt short of breath, mildly sweaty and anxious. He did not have pain in his chest but just felt something was wrong across the left chest. Patient had COVID several months ago but recovered. The patient has not been sick or ill. He has been in baseline health as of late otherwise. No fevers. He has never had a heart attack. PMHx/PSHx: See Below SOCIAL HISTORY: See Below. PHYSICAL EXAM: GENERAL: Patient is in no acute distress. HEENT: No acute trauma, normocephalic atraumatic, mucous membranes moist, no nasal congestion. NECK: No stridor, no adenopathy, no meningismus, trachea is midline. LUNGS: Clear to auscultation bilaterally, no wheeze, no rhonchi, breath sounds equal. HEART: Without murmurs gallops or rubs, regular rate and rhythm. ABDOMEN: Soft, nontender, bowel sounds positive, no peritonitis. EXTREMITIES: No cyanosis or edema, full range of motion of all the joints without pain or difficulty, no signs for acute trauma. NEUROLOGIC: Oriented x 3, no acute motor or sensory deficits, no focal weakness. SKIN: No rash, no jaundice, no diaphoresis. DIFFERENTIAL DIAGNOSIS: A-fib or a flutter, SVT, V. tach, LA, anemia, electrolyte imbalance, among others. EMERGENCY DEPARTMENT COURSE/PROCEDURES: Prior/Outside records reviewed: None. ECG per my interpretation: Indication was palpitations. The ECG shows a sinus rhythm with PVCs. The rate is 97. LVH is seen. There is no ST elevation. The QTc is 472 Continuous Cardiac Monitoring per my interpretation: An order was placed for continuous cardiac monitoring. The monitor shows a rate of 99 with sinus rhythm with PVCs. Observation Note: The patient was placed in observation status at 1200. Ob servation was initiated to help rule out dysrhythmia or cardiac ischemia. During the time in observation, the patient was frequently reassessed and received cardiac monitoring and IV hydration. On Final reassessment the patient appeared stable and was resting comfortably--he has cardiac troponin value did increase, the patient will be admitted at this time. Total observation time of around 3 hours. MEDICAL DECISION MAKING: There is no leukocytosis or concerning anemia. There is a normal platelet count. No renal failure or significant electrolyte abnormality. No concerning liver enzyme elevation. ECG showed a sinus rhythm with some PVCs. No acute ischemic change. LVH was noted. Cardiac troponin testing does show a slight rise in the troponin values consistent with a potential dysrhythmia, cardiac injury or strain. Patient appeared to be in a euthyroid state. COVID test returned negative. Chest x-ray does not show CHF, pneumonia or pneumothorax per my review. The patient was given IV saline for hydration, he has been watched on the night monitor. He has remained in a sinus rhythm. I did speak with Dr. Yoder of cardiology. We discussed the case. Given the concerns for dysrhythmia, given the troponin rise, hospitalization was felt gilmer anted. I spoke with the patient and case management, I did speak with the on-call hospitalist. DISPOSITION: The patient's presentation and findings warrant a hospital stay. Past Med/Surg History Medical History Acid reflux Asthma "EXCERCISE ASTHMA" Fatty pancreas History of blood clots "90% FEMORAL VEIN CLOTTED UP" - RIGHT LEG - 2008 History of cardiomyopathy HX OF "IDIOPATHIC CARDIOMYOPATHY DOWNGRADED IN 2002 TO HYPERTENSION" History of chemotherapy 2008 STARTED History of colon cancer History of depression History of pulmonary embolism 2009 S/P KNEE SURGERY Hx of diabetes mellitus TYPE 2 Kidney cysts SCAR TISSUE BOTH KIDNEYS Neuropathy Osteoarthritis Surgical History History of anesthesia reaction SHAKING/SHIVERS AFTER ANESTHEISA History of arthroscopy of left knee X3 History of bilateral cataract extraction History of bilateral knee replacement History of cardiac cath 1998 - [place], DX CARDIOMYOPATHY History of colon resection History of colonoscopy History of knee surgery X4 RIGHT History of lipoma History of sinus surgery Family History Mother Family history of diabetes mellitus Father Family history of diabetes mellitus Brother Family history of diabetes mellitus Other Family history non-contributory No family history of adverse response to anesthesia Social History Smoking Status: Former smoker Second Hand Exposure: No; Do You Dip or Chew Tobacco: No; Tobacco Cessation Education Requested by Patient: No Hx Alcohol Use: Yes Alcohol type: beer Hx Substance Use: No Preferred Language: Kiswahili Communication Ability: Effective Tank Charger Required: No Beliefs That Will Affect Care: None marital status: Current Living Situation: Spouse Current Living Situation Comment: , FATHER N LAW AND SON Other Information That Helps Us Care for You: No Feels Safe at Home: Yes Safety Concerns: Feels Safe At This Time Assistive Devices: Glasses Allergies Allergies Allergy/AdvReac Type Severity Reaction Status Date / Time adhesive Allergy Intermediate RED ITCHY Verified 05/04/22 15:51 SKIN, RASH latex Allergy Intermediate Rash Verified 05/04/22 15:51 nickel Allergy Intermediate "SKIN Verified 05/04/22 15:51 BUBBLES UP" Penicillins Allergy Intermediate "HIVES IN Verified 05/04/22 15:51 EARS" hydrocodone [From Vicodin] AdvReac Intermediate "SWEATY, Verified 05/04/22 15:51 FAINTY" meperidine AdvReac Intermediate VOMITS Verified 05/04/22 15:51 metronidazole AdvReac Intermediate Diarrhea Verified 05/04/22 15:51 metformin AdvReac Unknown reacts Verified 05/04/22 15:51 with another med Preston Pepper AdvReac Intermediate VOMITS Uncoded 05/04/22 15:51 RED CONTRAST AdvReac Intermediate VOMITS Uncoded 05/04/22 15:51 Red Dye AdvReac Intermediate VOMIT Uncoded 05/04/22 15:51 Home Meds Home Medications Medication Instructions Recorded Confirmed ascorbic acid (vitamin C) 1,000 mg 1 dose PO TID 06/12/18 05/04/22 tablet (Vitamin C) atorvastatin 20 mg tablet 20 mg PO HS 06/12/18 05/04/22 cetirizine 10 mg capsule (Zyrtec) 10 mg PO QAM 06/12/18 05/04/22 fluticasone 250 mcg-salmeterol 50 1 inh inhalation BID PRN Shortness 06/12/18 05/04/22 mcg/dose blistr powdr for Of Breath Or Wheezing inhalation (Advair Diskus) lisinopril 20 mg tablet (Zestril) 20 mg PO QAM 06/12/18 05/04/22 metoprolol succinate 50 mg 50 mg PO QAM 06/12/18 05/04/22 tablet,extended release 24 hr (Toprol XL) omeprazole magnesium 20 mg 20 mg PO QDL 06/12/18 05/04/22 tablet,delayed release (Prilosec OTC) saw palmetto 160 mg capsule 1 dose PO QDL 06/12/18 05/04/22 spironolactone 25 mg tablet 12.5 mg PO QAM 06/12/18 05/04/22 arginine (L-arginine) 500 mg tablet 500 mg PO QDL 06/19/18 05/04/22 qeuywmhr-[id number] acid 0.4 1 tab PO QAM 11/19/18 05/04/22 mg-lycopene 300 mcg-lutein 250 mcg tablet (Centrum Silver) sildenafil 100 mg tablet 100 mg PO DIRECTED PRN Erectile 12/15/18 05/04/22 Dysfunction Trypsin 100 mg PO QDL 09/18/20 05/04/22 aspirin 81 mg tablet,delayed 81 mg PO TID 05/04/22 05/04/22 release omega-3 fatty acids 500 mg capsule 0 mg PO TID 05/04/22 05/04/22 Results & Data (ED) Vital Signs Vital Signs - 24 hr 05/04/22 11:40 05/04/22 12:36 05/04/22 12:44 Temperature 36.8 C Temperature Source Temporal Artery Scan Pulse Rate 103 H 80 Pulse Rate [Left Apical] 76 Pulse Rhythm [Left Apical] Regular Respiratory Rate 20 16 Respiratory Effort / Characteristics Non-Labored Spontaneous Respiratory Depth Normal Normal Respiratory Pattern Regular Blood Pressure 118/72 Blood Pressure [Right Arm] 103/61 Blood Pressure Mean 87 Blood Pressure Mean [Right Arm] 75 Pulse Oximetry 96 97 Oxygen Delivery Method Room Air Room Air Sepsis Recent Fever Within 48 Hours No Sepsis New/Unexplained Change in Mental Status No Sepsis Action Taken by Nursing No Action Required 05/04/22 13:00 05/04/22 13:30 05/04/22 14:00 Temperature Temperature Source Pulse Rate 76 70 74 Pulse Rate [Left Apical] Pulse Rhythm [Left Apical] Respiratory Rate 23 23 24 Respiratory Effort / Characteristics Respiratory Depth Respiratory Pattern Blood Pressure 123/69 118/73 125/79 Blood Pressure [Right Arm] Blood Pressure Mean 87 88 94 Blood Pressure Mean [Right Arm] Pulse Oximetry 96 97 97 Oxygen Delivery Method Room Air Room Air Room Air Sepsis Recent Fever Within 48 Hours Sepsis New/Unexplained Change in Mental Status Sepsis Action Taken by Nursing 05/04/22 14:30 Temperature Temperature Source Pulse Rate 71 Pulse Rate [Left Apical] Pulse Rhythm [Left Apical] Respiratory Rate 23 Respiratory Effort / Characteristics Respiratory Depth Respiratory Pattern Blood Pressure 135/70 Blood Pressure [Right Arm] Blood Pressure Mean 91 Blood Pressure Mean [Right Arm] Pulse Oximetry 98 Oxygen Delivery Method Room Air Sepsis Recent Fever Within 48 Hours Sepsis New/Unexplained Change in Mental Status Sepsis Action Taken by Care Home Medications Current Medication List: was personally reviewed by me Laboratory Data Attestation: I reviewed the patient's lab results. 05/04/22 11:55 05/04/22 11:55 Lab Results 05/04/22 05/04/22 05/04/22 Range/Units 11:55 11:55 11:55 WBC 7.75 (4.8-10.8) K/ul RBC 4.67 L (4.70-6.10) M/uL Hgb 14.2 (14.0-18.0) g/dl Hct 42.1 (42.0-52.0) % MCV 90.1 (80.0-100.0) fL MCH 30.4 (25.0-34.0) pg MCHC 33.7 (32.0-36.0) g/dL RDW Std Deviation 44.5 (36.4-46.3) fL RDW Coeff of Cyn 13.4 (11.5-14.5) % Plt Count 235 (130-400) K/uL MPV 9.0 L (9.4-12.4) fL Immature Gran % (Auto) 0.3 % Neut % (Auto) 70.2 % Lymph % (Auto) 20.5 % [place] % (Auto) 6.7 % Eos % (Auto) 1.8 % Baso % (Auto) 0.5 % Neut # (Auto) 5.44 (1.40-6.50) K/uL Lymph # (Auto) 1.59 (1.2-3.4) K/uL [place] # (Auto) 0.52 (0.11-0.59) K/uL Eos # (Auto) 0.14 (0-0.50) K/uL Baso # (Auto) 0.04 (0-0.2) K/uL Immature Gran # (Auto) 0.02 (0.01-0.20) K/uL Sodium 139 (136-145) mmol/L Potassium 4.2 (3.5-5.1) mmol/L Chloride 108 H (98-107) mmol/L Carbon Dioxide 22 (21-32) mmol/L Anion Gap 9 (3-11) BUN 30 H (6-23) mg/dl Creatinine 1.35 (0.6-1.4) mg/dl Est Cr Clr Drug Dosing 55.9 ml/min Est GFR ( Amer) 61.2 ml/min Est GFR (Non-Af Amer) 52.8 ml/min BUN/Creatinine Ratio 22.2 H (10-20) Glucose 186 H (70-99(Fasting)) mg/dl Calcium 9.7 (8.5-10.1) mg/dl Magnesium 2.0 (1.7-2.4) mg/dl Total Bilirubin 1.1 H (0.2-1.0) mg/dl AST 20 (13-39) U/L ALT 25 (7-52) U/L Alkaline Phosphatase 58 (34-104) U/L Troponin I High Sens 15.5 (0-20) pg/ml Total Protein 7.3 (6.0-8.3) gm/dl Albumin 4.7 (3.4-5.0) gm/dl Globulin 2.6 (2.5-4.0) gm/dl Albumin/Globulin Ratio 1.8 (0.9-2) TSH 2.825 (0.300-4.500) uIu/ml SARS-CoV-2, RNA, NAAT (NEGATIVE) 05/04/22 05/04/22 Range/Units 14:23 15:52 WBC (4.8-10.8) K/ul RBC (4.70-6.10) M/uL Hgb (14.0-18.0) g/dl Hct (42.0-52.0) % MCV (80.0-100.0) fL MCH (25.0-34.0) pg MCHC (32.0-36.0) g/dL RDW Std Deviation (36.4-46.3) fL RDW Coeff of Cyn (11.5-14.5) % Plt Count (130-400) K/uL MPV (9.4-12.4) fL Immature Gran % (Auto) % Neut % (Auto) % Lymph % (Auto) % [place] % (Auto) % Eos % (Auto) % Baso % (Auto) % Neut # (Auto) (1.40-6.50) K/uL Lymph # (Auto) (1.2-3.4) K/uL [place] # (Auto) (0.11-0.59) K/uL Eos # (Auto) (0-0.50) K/uL Baso # (Auto) (0-0.2) K/uL Immature Gran # (Auto) (0.01-0.20) K/uL Sodium (136-145) mmol/L Potassium (3.5-5.1) mmol/L Chloride (98-107) mmol/L Carbon Dioxide (21-32) mmol/L Anion Gap (3-11) BUN (6-23) mg/dl Creatinine (0.6-1.4) mg/dl Est Cr Clr Drug Dosing ml/min Est GFR ( Amer) ml/min Est GFR (Non-Af Amer) ml/min BUN/Creatinine Ratio (10-20) Glucose (70-99(Fasting)) mg/dl Calcium (8.5-10.1) mg/dl Magnesium (1.7-2.4) mg/dl Total Bilirubin (0.2-1.0) mg/dl AST (13-39) U/L ALT (7-52) U/L Alkaline Phosphatase (34-104) U/L Troponin I High Sens 20.6 H (0-20) pg/ml Total Protein (6.0-8.3) gm/dl Albumin (3.4-5.0) gm/dl Globulin (2.5-4.0) gm/dl Albumin/Globulin Ratio (0.9-2) TSH (0.300-4.500) uIu/ml SARS-CoV-2, RNA, NAAT NEGATIVE (NEGATIVE) Administered Medications Insulin Aspart (Insulin Aspart Per Unit) 0 units SC ACHS CODY Stop: 06/03/22 16:29 Last Admin: 05/04/22 18:00 Dose: 3 units Documented By: FRANKLIN Co-signed By: [facility] Discontinued Medications Sodium Chloride (Nss) 500 mls @ 999 mls/hr IV .Q31M STA Stop: 05/04/22 12:36 Last Infusion: 05/04/22 13:17 Dose: 0 mls/hr Documented By: Admin: 05/04/22 12:31 Dose: 999 mls/hr Documented By: [facility] Imaging Data Radiologist's Impression: Chest X-Ray 05/04/22 12:06 XR chest 1V portable CLINICAL HISTORY: Dysrhythmia TECHNIQUE: Single frontal radiograph of the chest was obtained. Comparison: Comparison is made to chest radiograph 11/19/2018 FINDINGS: No lines and tubes are seen. The cardiomediastinal silhouette is normal. The lungs are clear. No evidence of pleural effusion or pneumothorax. IMPRESSION: No acute chest disease. ACT 112: Negative or not required by law. Electronically signed by: Jaime Rios M.D. 05/04/2022 12:37 PM Discharge Plan Visit Data Chief Complaint: Arrhythmia/Palpitations Stated Complaint: HEART PALPITATIONS, COLD SWEATS ED Provider: Harvey Hogan Discharge Problem: Elevated troponin, Palpitations, Diaphoresis, SOB (shortness of breath) Patient Disposition: Admitted As Inpatient Condition: Fair Discharge Instructions Interventions: ED Discharge Assessment Last Done: 05/04/22 17:08
--- NOTE | 2022-05-04 12:38 | XRay Report ---
XR chest 1V portable CLINICAL HISTORY: Dysrhythmia TECHNIQUE: Single frontal radiograph of the chest was obtained. Comparison: Comparison is made to chest radiograph 11/19/2018 FINDINGS: No lines and tubes are seen. The cardiomediastinal silhouette is normal. The lungs are clear. No evid ence of pleural effusion or pneumothorax. IMPRESSION: No acute chest disease. ACT 112: Negative or not required by law. Electronically signed by: Jaime Rios M.D. 05/04/2022 12:37 PM
[2022-05-04 12:42] LABS: Basophils # (auto) 0.04 K/uL (0-0.2); Basophils % (auto) 0.5 %; Eosinophils # (auto) 0.14 K/uL (0-0.50); Eosinophils % (auto) 1.8 %; Hematocrit (blood only) 42.1 % (42.0-52.0); Hemoglobin 14.2 g/dl (14.0-18.0); Immature Granulocytes # (auto) 0.02 K/uL (0.01-0.20); Immature Granulocytes % (auto) 0.3 %; Lymphocytes # (auto) 1.59 K/uL (1.2-3.4); Lymphocytes % (auto) 20.5 %; Mean Corpuscular Hemoglobin 30.4 pg (25.0-34.0); Mean Corpuscular Hgb Conc 33.7 g/dL (32.0-36.0); Mean Corpuscular Volume 90.1 fL (80.0-100.0); Monocytes # (auto) 0.52 K/uL (0.11-0.59); Monocytes % (auto) 6.7 %; Neutrophils # (auto) 5.44 K/uL (1.40-6.50); Neutrophils % (auto) 70.2 %; Platelet Count 235 K/uL (130-400); RDW Coefficient of Variation 13.4 % (11.5-14.5); RDW Standard Deviation 44.5 fL (36.4-46.3); Red Blood Count 4.67 M/uL (4.70-6.10); White Blood Count 7.75 K/ul (4.8-10.8)
[2022-05-04 12:47] LABS: Albumin Globulin Ratio 1.8 (0.9-2); Albumin Level 4.7 gm/dl (3.4-5.0); BUN Creatinine Ratio 22.2 (10-20); Bilirubin,Total 1.1 mg/dl (0.2-1.0); Calcium 9.7 mg/dl (8.5-10.1); Creatinine Clr Calc Pharmacy 55.9 ml/min; Est GFR (African American) 61.2 ml/min; Est GFR (Non-African American) 52.8 ml/min; Globulin 2.6 gm/dl (2.5-4.0); Potassium 4.2 mmol/L (3.5-5.1); Total Protein 7.3 gm/dl (6.0-8.3)
[2022-05-04 12:53] LABS: Troponin I High Sensitivity 15.5 pg/ml (0-20)
--- NOTE | 2022-05-04 15:42 | Electrocardiogram Report ---
Test Reason : Blood Pressure : / mmHG Vent. Rate : 097 BPM Atrial Rate : 097 BPM P-R Int : 174 ms QRS Dur : 106 ms QT Int : 372 ms P-R-T Axes : 051 -19 068 degrees QTc Int : 472 ms Sinus rhythm with occasional Premature ventricular complexes Left ventricular hypertrophy with repolarization abnormality Poor R wave progression, consider anterior NE vs. lead placement vs. LVH Abnormal ECG When compared with ECG of 19-NOV-2018 10:49, Premature ventricular complexes are now Present Vent. rate has increased BY 32 BPM Borderline criteria for Anterior infarct are now Present T wave inversion no longer evident in Inferior leads Confirmed by Raffi Yoder ([id number]) on 05/04/2022 3:41:58 PM Referred By: Confirmed By:Raffi Yoder
--- NOTE | 2022-05-04 16:15 | History & Physical Report ---
Date of Service May 04, 2022 Assessment & Plan (1) Palpitations: Plan: - hs-trop minimally elevated - EKG: nsr - echo pending - follow for dysrhythmia overnight - trops trended - doing well, no pain at bedside - 2x episodes, high risk history (2) HTN (hypertension): Plan: - continue home meds (3) Diabetes: Plan: - 7.3% A1C - AC/HS BSG - SSI/basal ordered - diet controlled as outpt (4) Heart disease: Plan: as noted (5) Asthma: Plan: - continue mylene einthales (6) Pulmonary emboli: Plan: - provoked by surgery after knee replacement and chemo - no longer on anticoagulation. did well after 6mo lovenox History of Present Illness Primary Care Provider: Jhonathan Villa MD Rihc is a 71-year-old male with a past medical history of cardiomyopathy suspected due to viral illness, diabetes, PE, trigger finger, hyperlipidemia, hypertension who presented with 2 episodes of shortness of breath and palpitations morning of admission. Patient is followed by Dr. Yoder as outpatient who discussed patient's presentation and symptoms with the ER. On admission troponin is 15 with an EKG not showing signs of acute ischemia, based on his history and palpitation has been recommended for overnight observation for dysrhythmia and troponin trending with echo. Pt reports has been in his usual state of health until this AM and got out of the shower when his heart started racing. Had cold sweats and chest was very tight around 8am. Layed back in the recliner chair and symptoms improved by ~8:45am. 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 Caem to the ER. No shortness of breath. No lightheadedness/dizzyness. No prior anginal symptoms. No weight gain. No problems with chest pain/chest pressure leading up to this. 2 artificial knees with some MSK pain, but no limiting angina/Barrera. Denies orthopnea Notes has been under more stress in the last week or two. Cardiomyopathy, coxacA in '. Medical History: Reviewed Medications: Reviewed Surgical History: Reviewed Allergies: Reviewed Social History: No tobacco use in last 34 years. Rare social etoh use, none recently. Code Status: Full Code Allergies Allergy/AdvReac Type Severity Reaction Status Date / Time adhesive Allergy Intermediate RED ITCHY Verified 05/04/22 15:51 SKIN, RASH latex Allergy Intermediate Rash Verified 05/04/22 15:51 nickel Allergy Intermediate "SKIN Verified 05/04/22 15:51 BUBBLES UP" Penicillins Allergy Intermediate "HIVES IN Verified 05/04/22 15:51 EARS" hydrocodone [From Vicodin] AdvReac Intermediate "SWEATY, Verified 05/04/22 15:51 FAINTY" meperidine AdvReac Intermediate VOMITS Verified 05/04/22 15:51 metronidazole AdvReac Intermediate Diarrhea Verified 05/04/22 15:51 metformin AdvReac Unknown reacts Verified 05/04/22 15:51 with another med Preston Pepper AdvReac Intermediate VOMITS Uncoded 05/04/22 15:51 RED CONTRAST AdvReac Intermediate VOMITS Uncoded 05/04/22 15:51 Red Dye AdvReac Intermediate VOMIT Uncoded 05/04/22 15:51 Home Medications Medication Instructions Recorded Confirmed Type ascorbic acid (vitamin C) 1,000 mg 1 dose PO TID 06/12/18 05/04/22 History tablet (Vitamin C) atorvastatin 20 mg tablet 20 mg PO HS 06/12/18 05/04/22 History cetirizine 10 mg capsule (Zyrtec) 10 mg PO QAM 06/12/18 05/04/22 History fluticasone 250 mcg-salmeterol 50 1 inh inhalation BID PRN Shortness 06/12/18 05/04/22 History mcg/dose blistr powdr for Of Breath Or Wheezing inhalation (Advair Diskus) lisinopril 20 mg tablet (Zestril) 20 mg PO QAM 06/12/18 05/04/22 History metoprolol succinate 50 mg 50 mg PO QAM 06/12/18 05/04/22 History tablet,extended release 24 hr (Toprol XL) omeprazole magnesium 20 mg 20 mg PO QDL 06/12/18 05/04/22 History tablet,delayed release (Prilosec OTC) saw palmetto 160 mg capsule 1 dose PO QDL 06/12/18 05/04/22 History spironolactone 25 mg tablet 12.5 mg PO QAM 06/12/18 05/04/22 History arginine (L-arginine) 500 mg tablet 500 mg PO QDL 06/19/18 05/04/22 History mdyugzur-izh-ciwbj acid 0.4 1 tab PO QAM 11/19/18 05/04/22 History mg-lycopene 300 mcg-lutein 250 mcg tablet (Centrum Silver) sildenafil 100 mg tablet 100 mg PO DIRECTED PRN Erectile 12/15/18 05/04/22 History Dysfunction Trypsin 100 mg PO QDL 09/18/20 05/04/22 History aspirin 81 mg tablet,delayed 81 mg PO TID 05/04/22 05/04/22 History release omega-3 fatty acids 500 mg capsule 0 mg PO TID 05/04/22 05/04/22 History Past Med/Surg History Medical History Acid reflux Asthma "EXCERCISE ASTHMA" Fatty pancreas History of blood clots "90% FEMORAL VEIN CLOTTED UP" - RIGHT LEG - 2008 History of cardiomyopathy HX OF "IDIOPATHIC CARDIOMYOPATHY DOWNGRADED IN 2002 TO HYPERTENSION" History of chemotherapy 2007 STARTED History of colon cancer History of depression History of pulmonary embolism 2009 S/P KNEE SURGERY Hx of diabetes mellitus TYPE 2 Kidney cysts SCAR TISSUE BOTH KIDNEYS Neuropathy Osteoarthritis Surgical History History of anesthesia reaction SHAKING/SHIVERS AFTER ANESTHEISA History of arthroscopy of left knee X3 History of bilateral cataract extraction History of bilateral knee replacement History of cardiac cath 1997 - [place], DX CARDIOMYOPATHY History of colon resection History of colonoscopy History of knee surgery X4 RIGHT History of lipoma History of sinus surgery Family History Mother Family history of diabetes mellitus Father Family history of diabetes mellitus Brother Family history of diabetes mellitus Other Family history non-contributory No family history of adverse response to anesthesia Social History Smoking Status: Former smoker Second Hand Exposure: Yes; Hx Alcohol Use: Yes Alcohol type: beer Preferred Language: Mauritanian Communication Ability: Effective Associate Professor Of English Required: No Beliefs That Will Affect Care: None marital status: Current Living Situation: Family Current Living Situation Comment: , FATHER N LAW AND SON Feels Safe at Home: Yes Assistive Devices: None Review of Systems Review of Systems: All systems reviewed & are unremarkable except as noted in HPI & below Physical Exam Physical Exam: General: A&Ox3. NAD. Cooperative. HEENT: Atraumatic, normocephalic. Vision/hearing itnact Pulm: CTAB A&P. -wheezes, -rales, -rhonchi. Symmetrical chest rise. No increased work of breathing. No respiratory distress. Cardiac: RRR, +sm. Radial pulses intact and symmetrical. Abdominal: Nontender, nondistended, soft. BS present. Ext: No edema, strength intact Results & Data Results & Data ([facility]) Vital Signs (Past 12 Hours) Vital Signs Temp Pulse Pulse Resp BP BP Pulse Ox 05/04/22 14:30 71 23 135/70 98 05/04/22 14:00 74 24 125/79 97 05/04/22 13:30 70 23 118/73 97 05/04/22 13:00 76 23 123/69 96 05/04/22 12:44 80 05/04/22 12:36 76 16 103/61 97 05/04/22 11:40 36.8 C 103 H 20 118/72 96 O2 Del Method 05/04/22 14:30 Room Air 05/04/22 14:00 Room Air 05/04/22 13:30 Room Air 05/04/22 13:00 Room Air 05/04/22 12:44 05/04/22 12:36 Room Air 05/04/22 11:40 Room Air PG Care Time/CCT Total # of Minutes Spent Total Time Spent with Patient: Total time spent is greater than 50% in coordination of care (as documented) at patient's floor/unit and/or counseling patient: Coding Level of Care Code 74957 INT INP/OBS CARE 2/55MIN Diagnoses Palpitations R00.2 HTN (hypertension) I10 Diabetes E11.9 Heart disease I51.9 Asthma J45.909 Pulmonary emboli I26.99
[2022-05-04] MEDS ORDERED: GLUCOSE 10 TAB/TUBE PO PRN (16:25)
[2022-05-04] MEDS ORDERED: DEXTROSE 50% 50 ML SYRINGE IV PRN (16:25)
[2022-05-04] MEDS ORDERED: GLUCOSE 40% GEL 15 GM TUBE PO PRN (16:25)
[2022-05-04] MEDS ORDERED: GLUCAGON FOR INJ 1 MG VIAL SQ PRN (16:25)
[2022-05-04] MEDS ORDERED: CARBOHYDRATES FOR HYPOGLYCEMIA PO PRN (16:25)
[2022-05-04] MEDS ORDERED: PHARMACY GLYCEMIC MGMT CONSULT PRN (16:25)
[2022-05-04] MEDS ORDERED: FLUTICASONE/VILANTEROL 200/25MCG 14 PUFFS/INHALER INH PRN (17:44)
[2022-05-04] MEDS: INSULIN ASPART PER UNIT SC SCH ×2 (18:00→21:31)
[2022-05-04] MEDS: ATORVASTATIN 20 MG TAB PO SCH (21:30)
[2022-05-04] MEDS: ASPIRIN 81 MG ECTAB PO SCH (21:30)
[2022-05-04] MEDS: HEPARIN SOD 5,000 UNIT/0.5 ML VIAL SQ SCH (21:31)
[2022-05-05] MEDS: HEPARIN SOD 5,000 UNIT/0.5 ML VIAL SQ SCH ×3 (05:17→21:06)
[2022-05-05 07:12] LABS: Basophils # (auto) 0.03 K/uL (0-0.2); Basophils % (auto) 0.5 %; Eosinophils # (auto) 0.27 K/uL (0-0.50); Eosinophils % (auto) 4.4 %; Hematocrit (blood only) 36.9 % (42.0-52.0); Hemoglobin 12.5 g/dl (14.0-18.0); Immature Granulocytes # (auto) 0.01 K/uL (0.01-0.20); Immature Granulocytes % (auto) 0.2 %; Lymphocytes # (auto) 1.84 K/uL (1.2-3.4); Lymphocytes % (auto) 29.9 %; Mean Corpuscular Hemoglobin 30.4 pg (25.0-34.0); Mean Corpuscular Hgb Conc 33.9 g/dL (32.0-36.0); Mean Corpuscular Volume 89.8 fL (80.0-100.0); Mean Platelet Volume 9.2 fL (9.4-12.4); Monocytes # (auto) 0.46 K/uL (0.11-0.59); Monocytes % (auto) 7.5 %; Neutrophils # (auto) 3.55 K/uL (1.40-6.50); Neutrophils % (auto) 57.5 %; Platelet Count 202 K/uL (130-400); RDW Coefficient of Variation 13.2 % (11.5-14.5); RDW Standard Deviation 43.7 fL (36.4-46.3); Red Blood Count 4.11 M/uL (4.70-6.10); White Blood Count 6.16 K/ul (4.8-10.8)
[2022-05-05 07:58] LABS: BUN Creatinine Ratio 23.7 (10-20); Calcium 9.2 mg/dl (8.5-10.1); Creatinine Clr Calc Pharmacy 81.1 ml/min; Est GFR (African American) 96.1 ml/min; Est GFR (Non-African American) 82.9 ml/min; Potassium 4.1 mmol/L (3.5-5.1)
[2022-05-05] MEDS: CEROVITE ADV FORMULA TAB PO SCH (08:41)
[2022-05-05] MEDS: ASPIRIN 81 MG ECTAB PO SCH ×3 (08:41→21:05)
[2022-05-05] MEDS: lisinopril 20 MG TAB PO SCH (08:42)
[2022-05-05] MEDS: INSULIN ASPART PER UNIT SC SCH ×4 (08:51→21:06)
[2022-05-05] MEDS: LANTUS PER UNIT CHARGE SQ SCH ×2 (08:54→21:05)
[2022-05-05] MEDS ORDERED: METOPROLOL SUCC 50MG EXT REL TAB PO SCH (09:00)
[2022-05-05] MEDS ORDERED: SPIRONOLACTONE 12.5 MG TAB PO SCH (09:00)
[2022-05-05] MEDS: ACETAMINOPHEN 325 MG TAB PO PRN (09:54)
--- NOTE | 2022-05-05 14:13 | Pharmacy Report ---
Pharmacy Glycemic Short Note 2 - Date of Service May 05, 2022 - Glycemic Short BSG Results (Last 24 hours): 05/04/22 05/04/22 05/05/22 17:37 20:13 06:37 Glucose 156 H POC Glucose 182 H 126 H 05/05/22 05/05/22 07:15 11:24 Glucose POC Glucose 163 H 94 OUTPATIENT ANTIDIABETIC REGIMEN: * n/a (diet-controlled) * HbA1c: 7.3% (04/29/22) ASSESSMENT: * Mr Kelsey is 71yo diabetic M admitted last evening with SOB/palpitations. * BSGs were >180mg/dL on admission, so pharmacy was consulted to assist with glycemic mgmt. * Pt started on conservative dose of Lantus this morning. Novolog will be used conservatively for correction only. * Do not anticipate that patient will require very much insulin. PLAN FOR INPATIENT GLYCEMIC CONTROL: * Basal insulin * Lantus 5 units SQ BID * Bolus insulin * NovoLog per scale ACHS or Q6hrs while NPO * Goal Range: Low 110 mg/dL - High 140 mg/dL * Correction Factor: 50 mg/dL/unit * Nutritional / Prandial insulin: none at this time
--- NOTE | 2022-05-05 16:46 | XCELERA ---
[id number]
--- NOTE | 2022-05-05 17:48 | Cardiology Consultation ---
Date of Consultation May 05, 2022 Assessment & Plan (1) Cardiomyopathy: (2) Wide-complex tachycardia: (3) Elevated troponin: (4) Palpitations: (5) Pulmonary hypertension: Plan ASSESSMENT/PLAN: 1. Cardiomyopathy: Etiology uncertain, however has history of dilated cardiomyopathy and appears to be hereditary with several generations involved, including 2 sons. Had severely reduced LV systolic function in the past. Currently moderate LV systolic dysfunction. Appears euvolemic. Increase metoprolol succinate to 100 mg daily. Titrate ANGEL LUIS inhibitor/ARNI. Patient/ interested in replacing lisinopril with ARNI, which can be performed by his primary direct sales representative, Dr. Yoder. Titrating beta-reji first given presentaion with palpitations, concerning for arrhythmia. Increase spironolactone to 25 mg daily. Echo findings discussed with him. They inquired about possible etiologies. Consider cardiac catheterization to evaluate for CAD. Patient would like to have this done. N.p.o. after midnight. Dr. Yoder to further discuss tomorrow. Mrs. Kelsey is concerned about ectopy playing a role. Outpatient monitor to quantify PVCs, however PVC burden does not appear excessive when reviewing telemetry today. Cannot exclude myocarditis from COVID-19 infection or prior chemotherapy playing a role. Multiple possible etiologies. Further secondary work-up as per Dr. Yoder. Currently does not qualify for ICD for primary prevention. 2. Palpitations: Concerning for arrhythmia, especially with 8 beat wide-complex tachycardia on telemetry and reduced LV systolic function. Continue telemetry. Titrating beta-reji. Outpatient monitor. 3. Wide-complex tachycardia: Plan as above. Continue telemetry. Beta-reji. 4. Elevated troponin: High-sensitivity troponin only slightly elevated, likely from demand ischemia as he presented with prolonged episode of palpitations, concerning for tachy arrhythmia. Plan as above. 5. Pulmonary hypertension: Finding discussed with him from echo. He appears euvolemic. Has history of pulmonary emboli, sleep apnea, and recent COVID-19 infection. Could consider right heart catheterization when performing coronary angiography. 6. Disposition: Dr. Yoder will resume his cardiology care tomorrow. Patient care was discussed with Dr. Yoder via telephone. N.p.o. after midnight and Dr. Yoder to discuss cardiac catheterization with him in more detail tomorrow as patient is interested in pursuing. Patient care discussed and communicated with Dr. London of the primary hospitalist service. Highly complex medical issues. Today's visit was 77 minutes in duration, which includes 34 minutes of [id number]-kh-fchc time, counseling patient and addressing questions and concerns. 15 minutes communicating with other providers as noted above. 28 minutes spent reviewing records, reviewing studies as noted, and completing documentation. History of Present Illness Reason for Consultation: palpitations Requesting Physician: Wilner London Attending Physician: Wilner London History of Present Illness Mr. Kelsey is a very pleasant 71-year-old gentleman with a history significant for dilated cardiomyopathy, type 2 diabetes, colon cancer s/p partial colectomy and chemotherapy ([id number]), right leg DVT and pulmonary embolism, and sleep apnea but did not tolerate CPAP. He has been followed in the past by Dr. Yoder of [facility], and Drs. Arevalo and Jose at [facility]. He was diagnosed with dilated cardiomyopathy in 1997. His ejection fraction was reportedly 15%. He underwent cardiac catheterization at [facility] without significant CAD. He also underwent myocardial biopsy which apparently did not demonstrate etiology for cardiomyopathy. He was being worked up for cardiac transplantation. He was placed on ANGEL LUIS inhibitor, metoprolol succinate, and spironolactone. At 1 point he was on digoxin but in the setting of hypovolemia while on Lasix, he became dig toxic, and digoxin was discontinued. Over the years, his LV systolic function normalized but apparently had evidence of wall motion abnormalities at 1 point, based on old records suggesting basal inferior wall motion abnormality in the setting of EF 60%. He also reports undergoing cardiac MRI in the past at [facility]. He most recently has been evaluated by Dr. Garcia at [facility], however he retired 2 or 3 years ago and he has not seen cardiology since that time. He had been active and exercising, including walking his dogs and tolerated it well. In February 2022 into March 2022, he was diagnosed with COVID-19 infection and was treated with Paxlovid. He states he was quite ill for 2 days. Since COVID-19 infection, he has not been exercising. He has lost a couple of pounds intentionally. He weighs himself daily. He maintains a low-sodium diet. He was admitted on 05/04/2022 for palpitations. He first noted palpitations approximately 2 weeks ago while sitting. He has a smart watch and there was no significant arrhythmia suggested per his report. On 05/04/2022, at 8 AM in the morning when getting into the shower, he had more palpitations and then a cold sweat. Symptoms persisted for approximately 1 hour. 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 They persisted until approximately 11:15 AM when he was sitting in the emergency department waiting room. He has not had any further palpitations since that time. While here he has had minimally elevated high-sensitivity troponins. He was noted to have 8 beat wide-complex tachycardia on 05/04/2022 at 2254, but was sleeping and therefore reports no symptoms. He denies shortness of breath, orthopnea, syncope, near syncope, or edema. No reported bleeding. Denies angina. Review of systems: As above. Review of systems otherwise negative/unremarkable. Family history: Father had cardiomyopathy. Brother had dilated cardiomyopathy. 2 sons diagnosed with dilated cardiomyopathy as children. Genetic testing was unrevealing. Brother with type 1 diabetes. Social history: Quit smoking in 1988. Rare alcohol. No drugs. Lives with his , Brittany. Has 2 daughters with his first . 2 sons with current . 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 His presented to the bedside and was present for the majority of today's meeting. Allergies Allergy/AdvReac Type Severity Reaction Status Date / Time adhesive Allergy Intermediate RED ITCHY Verified 05/04/22 15:51 SKIN, RASH latex Allergy Intermediate Rash Verified 05/04/22 15:51 nickel Allergy Intermediate "SKIN Verified 05/04/22 15:51 BUBBLES UP" Penicillins Allergy Intermediate "HIVES IN Verified 05/04/22 15:51 EARS" hydrocodone [From Vicodin] AdvReac Intermediate "SWEATY, Verified 05/04/22 15:51 FAINTY" meperidine AdvReac Intermediate VOMITS Verified 05/04/22 15:51 metronidazole AdvReac Intermediate Diarrhea Verified 05/04/22 15:51 metformin AdvReac Unknown reacts Verified 05/04/22 15:51 with another med Preston Pepper AdvReac Intermediate VOMITS Uncoded 05/04/22 15:51 RED CONTRAST AdvReac Intermediate VOMITS Uncoded 05/04/22 15:51 Red Dye AdvReac Intermediate VOMIT Uncoded 05/04/22 15:51 Home Medications Medication Instructions Recorded Confirmed Type ascorbic acid (vitamin C) 1,000 mg 1 dose PO TID 06/12/18 05/04/22 History tablet (Vitamin C) atorvastatin 20 mg tablet 20 mg PO HS 06/12/18 05/04/22 History cetirizine 10 mg capsule (Zyrtec) 10 mg PO QAM 06/12/18 05/04/22 History fluticasone 250 mcg-salmeterol 50 1 inh inhalation BID PRN Shortness 06/12/18 05/04/22 History mcg/dose blistr powdr for Of Breath Or Wheezing inhalation (Advair Diskus) lisinopril 20 mg tablet (Zestril) 20 mg PO QAM 06/12/18 05/04/22 History metoprolol succinate 50 mg 50 mg PO QAM 06/12/18 05/04/22 History tablet,extended release 24 hr (Toprol XL) omeprazole magnesium 20 mg 20 mg PO QDL 06/12/18 05/04/22 History tablet,delayed release (Prilosec OTC) saw palmetto 160 mg capsule 1 dose PO QDL 06/12/18 05/04/22 History spironolactone 25 mg tablet 12.5 mg PO QAM 06/12/18 05/04/22 History arginine (L-arginine) 500 mg tablet 500 mg PO QDL 06/19/18 05/04/22 History jiewpnlq-xlk-oanjo acid 0.4 1 tab PO QAM 11/19/18 05/04/22 History mg-lycopene 300 mcg-lutein 250 mcg tablet (Centrum Silver) sildenafil 100 mg tablet 100 mg PO DIRECTED PRN Erectile 12/15/18 05/04/22 History Dysfunction Trypsin 100 mg PO QDL 09/18/20 05/04/22 History aspirin 81 mg tablet,delayed 81 mg PO TID 05/04/22 05/04/22 History release omega-3 fatty acids 500 mg capsule 0 mg PO TID 05/04/22 05/04/22 History Patient History Medical History Acid reflux Asthma "EXCERCISE ASTHMA" Fatty pancreas History of blood clots "90% FEMORAL VEIN CLOTTED UP" - RIGHT LEG - 2009 History of cardiomyopathy HX OF "IDIOPATHIC CARDIOMYOPATHY DOWNGRADED IN 2002 TO HYPERTENSION" History of chemotherapy 2008 STARTED History of colon cancer History of depression History of pulmonary embolism 2009 S/P KNEE SURGERY Hx of diabetes mellitus TYPE 2 Kidney cysts SCAR TISSUE BOTH KIDNEYS Neuropathy Osteoarthritis Surgical History History of anesthesia reaction SHAKING/SHIVERS AFTER ANESTHEISA History of arthroscopy of left knee X3 History of bilateral cataract extraction History of bilateral knee replacement History of cardiac cath 1997 - [place], DX CARDIOMYOPATHY History of colon resection History of colonoscopy History of knee surgery X4 RIGHT History of lipoma History of sinus surgery Family History Mother Family history of diabetes mellitus Father Family history of diabetes mellitus Brother Family history of diabetes mellitus Other Family history non-contributory No family history of adverse response to anesthesia Social History Smoking Status: Former smoker Second Hand Exposure: No; Do You Dip or Chew Tobacco: No; Tobacco Cessation Education Requested by Patient: No Hx Alcohol Use: Yes Alcohol type: beer Hx Substance Use: No Preferred Language: Macanese Communication Ability: Effective Maintenance Operator Required: No Beliefs That Will Affect Care: None marital status: Current Living Situation: Spouse Current Living Situation Comment: , FATHER N LAW AND SON Other Information That Helps Us Care for You: No Feels Safe at Home: Yes Safety Concerns: Feels Safe At This Time Assistive Devices: Glasses Physical Exam Physical Exam: Gen.: No acute distress. Alert and oriented. HEENT: Anicteric sclera. Neck: No JVD. No hepatojugular reflux. No bruits. Normal carotid upstrokes bilaterally. Cardiac: PMI was nondisplaced. No ventricular heave. Regular. Normal S1-S2. No murmurs, rubs, or gallops. Pulmonary: Clear to auscultation bilaterally without wheezes, rales, or rhonchi. Abdomen: Soft, nontender, nondistended, with normoactive bowel sounds. No bruits noted. Extremities: 2+ radial pulses bilaterally. 2+ posterior tibialis pulses bilaterally. No edema or cyanosis. No palpable cords. Psychiatric: Affect appears appropriate. Results & Data ([facility]) Vital Signs (Past 12 Hours) Vital Signs Temp Pulse Pulse Resp BP Pulse Ox O2 Del Method 05/05/22 16:31 70 05/05/22 15:54 37.0 C 77 18 142/81 H 96 Room Air 05/05/22 11:50 37.2 C 68 18 142/86 H 95 Room Air 05/05/22 07:58 36.7 C 64 18 130/77 94 Room Air 05/05/22 07:14 77 Intake & Output 05/03/22 05/04/22 05/05/22 05/06/22 06:59 06:59 06:59 06:59 Intake Total 700 / 700 425 / 425 Output Total 170 / 170 Balance 530 / 530 424 / 424 Weight 172 lb 2.896 oz Laboratory Results Laboratory Results - last 24 hr 05/04/22 05/05/22 05/05/22 20:13 00:19 06:37 WBC 6.16 RBC 4.11 L Hgb 12.5 L Hct 36.9 L MCV 89.8 MCH 30.4 MCHC 33.9 RDW Std Deviation 43.7 RDW Coeff of Cyn 13.2 Plt Count 202 MPV 9.2 L Immature Gran % (Auto) 0.2 Neut % (Auto) 57.5 Lymph % (Auto) 29.9 Hemphill % (Auto) 7.5 Eos % (Auto) 4.4 Baso % (Auto) 0.5 Neut # (Auto) 3.55 Lymph # (Auto) 1.84 Hemphill # (Auto) 0.46 Eos # (Auto) 0.27 Baso # (Auto) 0.03 Immature Gran # (Auto) 0.01 Sodium Potassium Chloride Carbon Dioxide Anion Gap BUN Creatinine Est Cr Clr Drug Dosing Est GFR ( Amer) Est GFR (Non-Af Amer) BUN/Creatinine Ratio Glucose POC Glucose 126 H Calcium Troponin I High Sens 27.2 H 05/05/22 05/05/22 05/05/22 06:37 06:37 07:15 WBC RBC Hgb Hct MCV MCH MCHC RDW Std Deviation RDW Coeff of Cyn Plt Count MPV Immature Gran % (Auto) Neut % (Auto) Lymph % (Auto) Hemphill % (Auto) Eos % (Auto) Baso % (Auto) Neut # (Auto) Lymph # (Auto) Hemphill # (Auto) Eos # (Auto) Baso # (Auto) Immature Gran # (Auto) Sodium 138 Potassium 4.1 Chloride 107 Carbon Dioxide 26 Anion Gap 5 BUN 22 Creatinine 0.93 D Est Cr Clr Drug Dosing 81.1 Est GFR ( Amer) 96.1 Est GFR (Non-Af Amer) 82.9 BUN/Creatinine Ratio 23.7 H Glucose 156 H POC Glucose 163 H Calcium 9.2 Troponin I High Sens 26.1 H 05/05/22 05/05/22 05/05/22 11:24 12:23 16:31 WBC RBC Hgb Hct MCV MCH MCHC RDW Std Deviation RDW Coeff of Cyn Plt Count MPV Immature Gran % (Auto) Neut % (Auto) Lymph % (Auto) Hemphill % (Auto) Eos % (Auto) Baso % (Auto) Neut # (Auto) Lymph # (Auto) Hemphill # (Auto) Eos # (Auto) Baso # (Auto) Immature Gran # (Auto) Sodium Potassium Chloride Carbon Dioxide Anion Gap BUN Creatinine Est Cr Clr Drug Dosing Est GFR ( Amer) Est GFR (Non-Af Amer) BUN/Creatinine Ratio Glucose POC Glucose 94 122 H Calcium Troponin I High Sens 26.9 H Diagnostic Findings Labs reviewed. High-sensitivity troponin peaked at 27.2. Renal function normal. ECG personally reviewed from 05/04/2022 at 11:48 AM: Sinus rhythm with PVCs. 97 bpm. LVH. Poor R wave progression. Cannot exclude inferior infarct. Echo 05/05/2022: Normal LV size. EF 35 to 40%. Severe hypokinesis of the inferolateral wall. Severe hypokinesis to akinesis of the basal inferior wall. Otherwise, mild global hypokinesis. Mild LVH. Mild left atrial dilation. Sclerotic aortic valve. Mild MR. RVSP 42-45. History and physical report reviewed. Chest x-ray personally reviewed from 05/04/2022: No pleural effusion. No obvious infiltrate. Radiology interprets as no acute chest disease. Historical records reviewed outlining previous studies done at [facility] as noted in HPI. Telemetry personally reviewed: Predominantly sinus rhythm. PACs and PVCs. Wide-complex tachycardia x8 beats on 05/04/2022 at 2254. Medications Administered Current Inpatient Medications Acetaminophen (Acetaminophen 325 Mg Tab) 650 mg PO Q4H PRN PRN Reason: Pain or Fever Stop: 06/03/22 17:30 Last Admin: 05/05/22 09:54 Dose: 650 mg Aspirin (Aspirin 81 Mg Ectab) 81 mg PO TID [facility] Stop: 06/03/22 20:59 Last Admin: 05/05/22 14:03 Dose: 81 mg Atorvastatin Calcium (Atorvastatin 20 Mg Tab) 20 mg PO HS [facility] Stop: 06/03/22 20:59 Last Admin: 05/04/22 21:30 Dose: 20 mg Dextrose (Dextrose 50% 50 Ml Syringe) 25 - 50 ml IV UD PRN; Protocol PRN Reason: Hypoglycemia Protocol Stop: 06/03/22 16:24 Fluticasone/Vilanterol (Fluticasone/Vilanterol 200/25mcg 14 Puffs/Inhaler) 1 puffs INH BID PRN PRN Reason: Shortness Of Breath Or Wheezing Stop: 06/03/22 17:43 Glucagon (Glucagon For Inj 1 Mg Vial) 1 mg SQ UD PRN; Protocol PRN Reason: Hypoglycemia Protocol Stop: 06/03/22 16:24 Glucose (Glucose 10 Tab/Tube) 4 - 8 tab PO UD PRN; Protocol PRN Reason: Hypoglycemia Treatment Stop: 06/03/22 16:24 Glucose (Glucose 40% Gel 15 Gm Tube) 15 - 30 gm PO UD PRN; Protocol PRN Reason: Hypoglycemia Protocol Stop: 06/03/22 16:24 Heparin Sodium (Porcine) (Heparin Sod 5,000 Unit/0.5 Ml Vial) 5,000 units SQ Q8 [facility] Stop: 06/03/22 21:59 Last Admin: 05/05/22 14:03 Dose: 5,000 units Insulin Aspart (Insulin Aspart Per Unit) 0 units SC ACHS [facility] Stop: 06/03/22 16:29 Last Admin: 05/05/22 16:51 Dose: Not Given Insulin Glargine (Lantus Per Unit Charge) 5 units SQ BID [facility]; Protocol Stop: 06/03/22 20:59 Last Admin: 05/05/22 08:54 Dose: 5 units Lisinopril (Lisinopril 20 Mg Tab) 20 mg PO QAM [facility] Stop: 06/04/22 08:59 Last Admin: 05/05/22 08:42 Dose: 20 mg Metoprolol Succinate (Metoprolol Succ 50mg Ext Rel Tab) 50 mg PO QAM [facility] Stop: 06/04/22 08:59 Last Admin: 05/05/22 08:42 Dose: 50 mg Miscellaneous (Carbohydrates For Hypoglycemia ) 15 - 30 gm PO UD PRN PRN Reason: Hypoglycemia Protocol Stop: 06/03/22 16:24 Miscellaneous Information (Pharmacy Glycemic Mgmt Consult) 1 each N/A UD PRN; Protocol PRN Reason: Consult Stop: 06/03/22 16:24 Multivitamins/Minerals (Cerovite Adv Formula Tab) 1 tab PO QAM [facility] Stop: 06/04/22 08:59 Last Admin: 05/05/22 08:41 Dose: 1 tab Spironolactone (Spironolactone 12.5 Mg Tab) 12.5 mg PO QAM [facility] Stop: 06/04/22 08:59 Last Admin: 05/05/22 08:41 Dose: 12.5 mg PG Care Time/CCT Total # of Minutes Spent Total Time Spent with Patient: Total time spent is greater than 50% in coordination of care (as documented) at patient's floor/unit and/or counseling patient: Coding Level of Care Code 99966 INT INP/OBS CARE 375MIN Diagnoses Cardiomyopathy I42.9 Wide-complex tachycardia R00.0 Elevated troponin R77.8 Palpitations R00.2 Pulmonary hypertension I27.20 Time Spent (min) 77
[2022-05-05] MEDS ORDERED: OPTIRAY 320 500ml IV ONE (19:26)
--- NOTE | 2022-05-05 20:06 | Hospitalist Progress Note ---
Date of Service May 05, 2022 Assessment & Plan (1) Palpitations: Plan: Thus far tele has shown numerous PACS, PVCs, and 1 run of probable NSVT last pm. Fortunately he had no symptoms during the brief run of wide complex tachycardia. His symptoms are concerning in the setting of depressed EF. To be complete, given his past h/o DVT/PE and his somewhat recent COVID illness, will obtain CTA chest to rule out PE (COVID is VTE risk factor given induced hypercoagulable state). Cont BB. Cont tele. I [place] Alberts [place] [facility] [place] [facility] and, given his echo findings and symptoms, there are plans for diagnostic cardiac cath tomorrow to r/o CAD. Suspect he will need a 30-day monitor post-discharge to r/o sustained dysrhythmia. Of note - TSH is wnl. Electrolytes are wnl. (2) Cardiomyopathy: Plan: Initial dx of dilated cardiomyopathy in 1997. He specifically mentions perhaps a viral etiology - ?coxsackie. It appears he may have a genetic component as well as both sons are carriers of a genetic mutation that lends itself to cardiomyopathy but neither have actually developed any cardiac disease. [place] D[place]val[place] and [place] [facility] [place] 15% in 1997. [place] [facility] [place] show obstructive [place] at that time. Had cardiac MRI as part of his w/u. s/p cardiac biopsy at that time which was negative for specific etiology for his cardiomyopathy. EF normalized by reported to >50% EF. There has been no recent echo via the [facility] system in many years. Now with EF 35-40%. Cont BB. Cont ANGEL LUIS. Cont aldactone. Lasix prn, but today appears compensated. Defer med adjustment to cardiology who has been consulted. (3) HTN (hypertension): Plan: Cont BB. Cont ANGEL LUIS. Cont aldactone. (4) Diabetes: Plan: Recent a1c 7.3% DM diet AC/HS BSG SSI/basal insulin ordered (5) Asthma: Plan: no flare at this time (6) Wide-complex tachycardia: Plan: see above <10 beat run last pm - no symptoms - ?NSVT (7) Pulmonary hypertension: Plan: mild, as seen on today's echo (8) Elevated troponin: Plan: probable myocardial demand ischemia no evidence for ACS (9) SOB (shortness of breath): Plan: denies such today but obtaining CTA chest r/o PE in light of prior VTE history (10) History of pulmonary embolism: Plan: 2008 - in setting of colon cancer Plan appreciate cardiology assistance Admission and Anticipated Discharge Date Admission Date: May 04, 2022 Subjective tele overnight - frequent PACs, PVCs, and a brief run (<10 beats) of wide complex tachycardia - possibly NSVT during the run of NSVT he was sleeping as he recalls being woken up by staff to be asked about symptoms related to the wide complex tachycardia due to being asleep he did not have any symptoms patient states he overall feels better today walked for 10 minutes on 2 occasions in the hallway and had no limiting chest pain, dizziness, lightheadedness, SAENZ, or palpitations he does admit to having a lot of stress recently drinks about 3 cups of regular coffee daily each morning with respect to the palpitation spells he did have a cold sweat with the episodes denies he felt short of breath, but stated it "took longer" to perform tasks when he was feeling the symptoms no discrete chest pain he spent a lot of the visit detailing his cardiomyopathy experience in 1997 he has not been following regularly with a community development planner in many years, but wishes to re-establish care with Dr Yoder Review of Systems Review of Systems: gen - no fevers, no illnesses except he did have COVID in late Feb/early March, with symptoms lasting 2-3 weeks cv - no orthopnea or cp; no edema pulm - no cough or dyspnea or SAENZ GI - no nausea/emesis Physical Exam Physical Exam: gen - pleasant, NAD mouth - MMM neck - no JVD heart - RR, extra beats, s1 s2, no murmur lungs - CTA b/l abd - soft NT ND BS+ ext - no edema, pulses 2+ b/l psych - a/o x 3 Results & Data Results & Data ([facility]) Vital Signs (Past 12 Hours) Vital Signs Temp Pulse Pulse Resp BP BP Pulse Ox 05/05/22 20:01 36.9 C 74 18 126/70 96 05/05/22 16:31 70 05/05/22 15:54 37.0 C 77 18 142/81 H 96 05/05/22 11:50 37.2 C 68 18 142/86 H 95 O2 Del Method 05/05/22 20:01 Room Air 05/05/22 16:31 05/05/22 15:54 Room Air 05/05/22 11:50 Room Air Laboratory Results Laboratory Results - last 24 hr 05/05/22 05/05/22 05/05/22 06:37 06:37 06:37 WBC 6.16 RBC 4.11 L Hgb 12.5 L Hct 36.9 L MCV 89.8 MCH 30.4 MCHC 33.9 RDW Std Deviation 43.7 RDW Coeff of Cyn 13.2 Plt Count 202 MPV 9.2 L Immature Gran % (Auto) 0.2 Neut % (Auto) 57.5 Lymph % (Auto) 29.9 Hartley % (Auto) 7.5 Eos % (Auto) 4.4 Baso % (Auto) 0.5 Neut # (Auto) 3.55 Lymph # (Auto) 1.84 Hartley # (Auto) 0.46 Eos # (Auto) 0.27 Baso # (Auto) 0.03 Immature Gran # (Auto) 0.01 Sodium 138 Potassium 4.1 Chloride 107 Carbon Dioxide 26 Anion Gap 5 BUN 22 Creatinine 0.93 D Est Cr Clr Drug Dosing 81.1 Est GFR ( Amer) 96.1 Est GFR (Non-Af Amer) 82.9 BUN/Creatinine Ratio 23.7 H Glucose 156 H POC Glucose Calcium 9.2 Troponin I High Sens 26.1 H 05/05/22 05/05/22 05/05/22 07:15 11:24 12:23 WBC RBC Hgb Hct MCV MCH MCHC RDW Std Deviation RDW Coeff of Cyn Plt Count MPV Immature Gran % (Auto) Neut % (Auto) Lymph % (Auto) Hartley % (Auto) Eos % (Auto) Baso % (Auto) Neut # (Auto) Lymph # (Auto) Hartley # (Auto) Eos # (Auto) Baso # (Auto) Immature Gran # (Auto) Sodium Potassium Chloride Carbon Dioxide Anion Gap BUN Creatinine Est Cr Clr Drug Dosing Est GFR ( Amer) Est GFR (Non-Af Amer) BUN/Creatinine Ratio Glucose POC Glucose 163 H 94 Calcium Troponin I High Sens 26.9 H 05/05/22 05/05/22 16:31 20:18 WBC RBC Hgb Hct MCV MCH MCHC RDW Std Deviation RDW Coeff of Cyn Plt Count MPV Immature Gran % (Auto) Neut % (Auto) Lymph % (Auto) Hartley % (Auto) Eos % (Auto) Baso % (Auto) Neut # (Auto) Lymph # (Auto) Hartley # (Auto) Eos # (Auto) Baso # (Auto) Immature Gran # (Auto) Sodium Potassium Chloride Carbon Dioxide Anion Gap BUN Creatinine Est Cr Clr Drug Dosing Est GFR ( Amer) Est GFR (Non-Af Amer) BUN/Creatinine Ratio Glucose POC Glucose 122 H 139 H Calcium Troponin I High Sens Diagnostic Findings Echo: PG Care Time/CCT Total # of Minutes Spent Total Time Spent with Patient: Total time spent is greater than 50% in coordination of care (as documented) at patient's floor/unit and/or counseling patient: Coding Level of Care Code 24872 SUB INP/OBS CARE 3/50MIN Diagnoses Palpitations R00.2 Cardiomyopathy I42.9 HTN (hypertension) I10 Diabetes E11.9 Asthma J45.909 Wide-complex tachycardia R00.0 Pulmonary hypertension I27.20 Elevated troponin R77.8 SOB (shortness of breath) R06.02 History of pulmonary embolism Z86.711
--- NOTE | 2022-05-05 20:22 | CT Scan Report ---
CT angio chest PE protocol CLINICAL HISTORY: episodes of palpitations, prior PEs TECHNIQUE: Multidetector row helical CT of the chest was performed with angiographic protocol. Warner l and sagittal reformations were obtained. Coronal and sagittal MIPS were obtained from the axial pretty a set and were submitted for review. Automated dose lowering techniques and/or adjustment according to patient size were utilized for this exam. CT DOSE: 479.82 mGy.cm Comparison: Comparison is made to CT chest 12/03/2014 FINDINGS: Lungs and pleura: Normal. Heart and pericardium: Heart size is normal. No pericardial effusion. Vessels: No evidence of pulmonary embolism. Mediastinum and williams: Subcentimeter lymph nodes are seen. Chest wall and lower neck: Unremarkable. Abdomen: Unremarkable. Bones: Degenerative changes in the thoracic spine. IMPRESSION: No acute abnormalities and in particular no evidence of pulmonary embolus. ACT 112: Negative or not required by law. Electronically signed by: Jaime Rios M.D. 05/05/2022 8:20 PM
[2022-05-05] MEDS: ATORVASTATIN 20 MG TAB PO SCH (21:06)
[2022-05-05] MEDS ORDERED: FAMOTIDINE 20 MG TAB PO ONE (22:48)
[2022-05-06] MEDS: HEPARIN SOD 5,000 UNIT/0.5 ML VIAL SQ SCH ×3 (06:11→20:50)
[2022-05-06 07:22] LABS: Calcium 9.6 mg/dl (8.5-10.1); Creatinine Clr Calc Pharmacy 72.5 ml/min; Est GFR (African American) 83.9 ml/min; Est GFR (Non-African American) 72.4 ml/min; Potassium 3.9 mmol/L (3.5-5.1)
[2022-05-06] MEDS: INSULIN ASPART PER UNIT SC SCH ×4 (08:40→20:49)
[2022-05-06] MEDS: LANTUS PER UNIT CHARGE SQ SCH (08:41)
[2022-05-06] MEDS: lisinopril 20 MG TAB PO SCH (08:42)
[2022-05-06] MEDS: METOPROLOL SUCC 50MG EXT REL TAB PO SCH (08:42)
[2022-05-06] MEDS: SPIRONOLACTONE 25 MG TAB PO SCH (08:42)
[2022-05-06] MEDS: CEROVITE ADV FORMULA TAB PO SCH (08:43)
[2022-05-06] MEDS: ASPIRIN 81 MG ECTAB PO SCH ×3 (08:43→20:48)
--- NOTE | 2022-05-06 10:08 | Cardiology Progress Note ---
Date of Service May 06, 2022 Assessment & Plan (1) Cardiomyopathy: Plan: -LVEF 35-40% with wall motion abnormality. -will proceed with cardiac catheterization to rule out ischemia as an etiology. -history of dilated, nonischemic cardiomyopathy in 1997. -continue metoprolol succinate, lisinopril, and spironolactone. -consider initiating Entresto after a 36 hour lisinopril washout. Can be done as an outpatient. -consider addition of empagliflozin as an outpatient. (2) Wide-complex tachycardia: Plan: -no further ventricular tachycardia on monitoring engineer. -metoprolol succinate dose was increased from 50 up to 100 mg daily. -will investigate further with a 30 day monitor. (3) Elevated troponin: Plan: -very minor elevation noted. -cardiac catheterization ordered for today. Admission and Anticipated Discharge Date Admission Date: May 04, 2022 Subjective The patient is resting comfortably bed of chest pain, dyspnea, palpitations. Discussed need to proceed with a cardiac catheterization. He understands and agrees to proceed. Physical Exam Physical Exam: In general this is a well-developed well-nourished white male in no acute distress. HEENT exam is negative. Neck is supple with full carotid upstrokes. There are no carotid bruits. Jugular venous pressure is flat at 90. There is no thyromegaly. Cardiovascular exam reveals a regular rhythm with distant heart sounds. No obvious murmurs S3. Lungs are clear without rales, rhonchi, or wheezes. Abdomen is soft and nontender without bruits. Extremities reveal intact radial artery and posterior tibial pulses bilaterally. There is no peripheral edema. Results & Data ([facility]) Vital Signs (Past 12 Hours) Vital Signs Temp Pulse Pulse Resp BP BP Pulse Ox 05/06/22 08:30 36.8 C 68 18 134/74 96 05/06/22 08:28 36.8 C 68 18 134/74 96 05/06/22 03:02 37 C 58 L 18 125/76 95 05/05/22 23:36 36.7 C 68 18 111/70 96 05/05/22 21:59 74 O2 Del Method 05/06/22 08:30 Room Air 05/06/22 08:28 Room Air 05/06/22 03:02 Room Air 05/05/22 23:36 Room Air 05/05/22 21:59 Diagnostic Findings residential monitor is benign. No further ventricular tachycardia. PG Care Time/CCT Total # of Minutes Spent Total Time Spent with Patient: Total time spent is greater than 50% in coordination of care (as documented) at patient's floor/unit and/or counseling patient: Coding Level of Care Code 66300 SUB INP/OBS CARE 3/50MIN Diagnoses Cardiomyopathy I42.9 Wide-complex tachycardia R00.0 Elevated troponin R77.8
[2022-05-06] MEDS ORDERED: HEPARIN (PORCINE) 1000 UNIT/ML 10 ML (CATH LAB USE ONLY) ONE (10:27)
[2022-05-06] MEDS ORDERED: fentaNYL citrate PF 100 MCG/2 ML VIAL ONE (10:27)
[2022-05-06] MEDS ORDERED: niCARdipine HCL INJ 2.5 MG/ML 10 ML AMP ONE (10:27)
[2022-05-06] MEDS ORDERED: NITROGLYCERIN/D5W 100MCG/ML 20ML SYR ONE (10:28)
[2022-05-06] MEDS ORDERED: MIDAZOLAM HCL 1 MG/ML 2ML VIAL ONE (10:28)
[2022-05-06 11:28] LABS: iSTAT Arterial Blood Gas HCO3 24 meg/L (19-24); iSTAT Arterial Blood Gas pCO2 45 mmHg (35-46); iSTAT Arterial Blood Gas pH 7.34 (7.35-7.45); iSTAT Arterial Blood Gas pO2 38 mmHg (80-95); iSTAT Carbon Dioxide 25 mmol/L (24-31)
[2022-05-06 11:28] LABS: iSTAT Arterial Blood Gas HCO3 23 meg/L (19-24); iSTAT Arterial Blood Gas pCO2 40 mmHg (35-46); iSTAT Arterial Blood Gas pH 7.36 (7.35-7.45); iSTAT Arterial Blood Gas pO2 73 mmHg (80-95); iSTAT Carbon Dioxide 24 mmol/L (24-31)
--- NOTE | 2022-05-06 11:58 | Post Anesthesia Assessment ---
Date of Service May 06, 2022 Post Sedation Assessment Vital Signs Temp Pulse Pulse Resp BP BP Pulse Ox 05/06/22 11:45 56 L 16 128/81 98 05/06/22 11:30 61 16 132/85 98 05/06/22 07:30 69 05/06/22 08:30 98.2 F 68 18 134/74 96 05/06/22 08:28 98.2 F 68 18 134/74 96 05/06/22 03:02 98.6 F 58 L 18 125/76 95 05/05/22 23:36 98.1 F 68 18 111/70 96 05/05/22 21:59 74 05/05/22 20:01 98.4 F 74 18 126/70 96 05/05/22 16:31 70 05/05/22 15:54 98.6 F 77 18 142/81 H 96 O2 Del Method 05/06/22 11:45 Room Air 05/06/22 11:30 Room Air 05/06/22 07:30 05/06/22 08:30 Room Air 05/06/22 08:28 Room Air 05/06/22 03:02 Room Air 05/05/22 23:36 Room Air 05/05/22 21:59 05/05/22 20:01 Room Air 05/05/22 16:31 05/05/22 15:54 Room Air Recovery Score Activity: Moves 4 extremities Respiration: Deep Breath/Cough Circulation: +/-20% PreAnes Value Consciousness: Fully Awake Oxygen Saturation: > 92% On Room Air Post Anesthesia Score: 10 Discharge Sedation Level of Care: Fast Track Phase II Post Sedation Plan On clinical assessment, the patient appears to have tolerated the sedation without complications. Patient is recovering as anticipated. Patient will continue to be monitored by nursing and may be discharged when sedation discharge criteria are met per below protocol. Upon Completions of procedure up to 15 minutes continue every 5 minute vital signs and the P.A.R. score; then discharge to a Phase I or Fast Track to Phase II per the following guidelines: * Discharge Patient to appropriate Phase II area if PAR is 8 or greater or return to pre- procedure baseline. The post - procedure orders will be as directed. * If PAR score is less than 8 or not return to pre-procedure baseline then patient will follow Phase I monitoring till PAR is reached for Phase II. The Phase I may be done in procedure room or may call to secure a Phase I area. * If naloxone or flumazenil are used for reversal, hold in Phase I for continued monitoring from when last reversal dose was given for a minimum of 60 minutes or longer pending the nurse and/or physician discretion of patient condition before discharge to Phase II. Please call the Sedation Physician to re-evaluate and complete post-note for discharge to Phase II area. Do NOT discharge from procedure sedation or Phase 1 until post- sedation evaluation note is complete by procedure /sedation MD Sedation Discharge Instructions to be given to the patient at discharge to home.
--- NOTE | 2022-05-06 12:02 | Cardiac Catheterization ---
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 Clinical evaluation leading to the procedure CAD Presenation: Sx unlikely to be ischemic Diagnostic Physicians Name: Joshua Montenegro MD Closure Device Recommendations: Medical Therapy and/or Counseling Cardiac Cath Procedure Full Procedure Date May 06, 2022 Pre-Procedure Diagnosis Pre-Procedure Diagnosis: Cardiomyopathy AUC Score AUC Score: 7 Post-Procedure Diagnosis Post-Procedure Diagnosis: Normal Coronary Arteries Procedure(s) Performed Procedure(s) Performed: Coronary Angiography and Left Heart Cath Computer [facility] Para Professional Joshua Montenegro MD Blasting Helper(s) Showers Estimated Blood Loss Estimated Blood Loss: 5 Medication(s) Medication(s): Fentanyl, Heparin, Lidocaine 1%, Nicardipine, Nitroglycerin and Versed Summary of Findings Indication: Cardiomyopathy Access: 6 Fr right radial artery, 7 Fr right antecubital vein Catheters: 7 Fr [place] (latex allergy), [place] Findings: LM -normal caliber, no significant disease LAD -large caliber, midsegment luminal irregularities, distal vessel extends around apex. Medium D1 without significant disease. Circumflex -medium caliber, no significant disease. Medium OM1, large OM 3 without disease. RCA -dominant, large caliber, mid and distal luminal irregularities, mid segment ectatic. Medium PDA, PLB without significant disease RA 1 RV 22/2 PA 23/5 (11) PAWP 5 LV 13 PaSat 68% AoSat 94% Abdiel CO/CI 7/3.4 Thermo CO/CI 5.1/2.5 Arterial Closure: TR band Summary: 1. Essentially normal coronary arteries angiographically. 2. Normal left and right-sided filling pressure. 3. Normal pulmonary artery pressures. 4. Normal cardiac output. Recommendations: Continue GDMT for nonischemic cardiomyopathy Hemodynamics Rest Ao:: 120/59/104 Final Ao: 108/60/82 LV: 120/13 Recommendations Recommendations: Medical Therapy and/or Counseling Specimens Specimens: None Radiation Exposure (mGy) 633 Contrast (mls) 35 Anesthesia Moderate [id number] Procedural Complication(s) None Disposition PCU I attest to the content of the Intraoperative Record and any orders documented therein. Any exceptions are noted below. [facility] Card Cath Procedure Codes Cardiac Catheterization Procedure 1: Cardiovascular Cath Procedures: 82291 Coronaries & LHC (+/-LV) & RHC Moderate Sedation Procedure 1: Sedation/Anesthesia: 47484 Mod Sedation by the same physician;Init15 Min Child Age 5 & Up Procedure 2: Sedation/Anesthesia: 75557 Mod Sedation by the same physician; Ea [id number] Minutes PG Care Time/CCT Total # of Minutes Spent Total Time Spent with Patient: Total time spent is greater than 50% in coordination of care (as documented) at patient's floor/unit and/or counseling patient:
[2022-05-06] MEDS: ACETAMINOPHEN 325 MG TAB PO PRN (13:22)
--- NOTE | 2022-05-06 20:47 | Hospitalist Progress Note ---
Date of Service May 06, 2022 Assessment & Plan (1) Palpitations: Plan: Since admission - tele with numerous PACS, PVCs, and 1 run of probable NSVT two nights ago. no wide complex tachycardia since then. Fortunately he had no symptoms during the brief run of wide complex tachycardia. CTA chest negative for PE. Left and Right heart cath today negative for pulmonary HTN or CAD. TSH wnl. Cont BB. Cont telemetry. Plan is for 30-day event monitor post-discharge. Episodes of palpitations still concerning for arrhythmia. If episodes persist - especially with chills/sweats - and if monitoring is negative - could consider w/u for pheochromocytoma but doubt such. (2) Cardiomyopathy: Plan: Initial dx of dilated cardiomyopathy in 1997. He specifically mentions perhaps a viral etiology - ?coxsackie. It appears he may have a genetic component as well as both sons are carriers of a genetic mutation that lends itself to cardiomyopathy but neither have actually developed any cardiac disease. Previously [place] by Drs. Arevalo and Jose [place] [facility] [place] EF was 15% in 1997. Cardiac cath [place] [facility] [place] not show obstructive CAD at that time. Had cardiac MRI as part of his w/u. s/p cardiac biopsy at that time which was negative for specific etiology for his cardiomyopathy. Records from [facility] [place] obtained -- echo 05/26/17 - EF 55%; no LVH; no WMA; grade 1 diastolic dysfunction. Dobutamine stress echo 2018 - EF was 65% on resting images. Now with EF 35-40% on this admission's echo. Etiology uncertain. Clinical picture not c/w stress-induced cardiomyopathy. 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 Cont BB at higher dose. Cont ANGEL LUIS but ultimate plan is Entresto. Cont aldactone. Lasix prn, but again appears compensated. (3) HTN (hypertension): Plan: Cont BB. Cont ANGEL LUIS. Cont aldactone. Controlled. (4) Diabetes: Plan: Recent a1c 7.3% DM diet AC/HS BSG Controlled (5) Asthma: Plan: no flare at this time CT chest w/o pathology (6) Wide-complex tachycardia: Plan: see above <10 beat run evening of 05/04/22 no runs since that time plan - outpatient 30-day event monitor continue beta reji (7) Pulmonary hypertension: Plan: right heart cath today with normal right heart findings (8) Elevated troponin: Plan: 2nd to myocardial demand ischemia no evidence for ACS normal left heart cath today no evidence of myocarditis or pericarditis (9) SOB (shortness of breath): Plan: denies such again today CTA chest neg for PEs, pneumonia, pulm edema, etc (10) History of pulmonary embolism: Plan: 2009 - in setting of colon cancer none seen on CTA chest this admission Plan appreciate cardiology assistance change OBS to admission status watch overnight labs am updated by phone this evening anticipate d/c to home tomorrow Admission and Anticipated Discharge Date Admission Date: May 06, 2022 Subjective no events overnight no episodes of palpitations, dyspnea, SAENZ, or chest pain tele - no NSVT or other sustained arrhythmia I saw the patient post-cath was resting comfortably states he has been walking the hallways without limitation he again recounts the last few weeks/months of his life including COVID infection 03/2022, stressors at work, etc Review of Systems Review of Systems: gen - feels good, normal appetite cv - no orthopnea, cp, palpitations pulm - no cough or dyspnea or SAENZ GI - no nausea/emesis Physical Exam Physical Exam: gen - pleasant, NAD mouth - MMM neck - no JVD heart - RRR, s1 s2, no murmur lungs - CTA b/l abd - soft NT ND BS+ ext - no edema, pulses 2+ b/l psych - a/o x 3 vascular - right radial artery w/o hematoma (cath site) Results & Data Results & Data ([facility]) Vital Signs (Past 12 Hours) Vital Signs Temp Pulse Pulse Pulse Resp BP Pulse Ox 05/06/22 19:48 36.7 C 63 19 122/60 93 05/06/22 17:00 64 18 125/76 95 05/06/22 16:00 36.3 C L 66 18 124/73 97 05/06/22 15:53 66 05/06/22 14:51 63 18 118/77 99 05/06/22 14:14 36.8 C 60 18 130/81 97 05/06/22 13:59 68 16 134/61 98 05/06/22 13:45 72 16 130/75 98 05/06/22 13:30 69 16 134/66 98 05/06/22 13:15 65 16 114/82 98 05/06/22 13:00 65 16 120/79 98 05/06/22 12:45 64 16 122/72 97 05/06/22 12:30 61 16 127/81 97 05/06/22 12:15 66 16 136/82 97 05/06/22 12:00 66 16 141/88 H 97 05/06/22 11:45 56 L 16 128/81 98 05/06/22 11:30 61 16 132/85 98 O2 Del Method 05/06/22 19:48 Room Air 05/06/22 17:00 Room Air 05/06/22 16:00 Room Air 05/06/22 15:53 05/06/22 14:51 Room Air 05/06/22 14:14 Room Air 05/06/22 13:59 Room Air 05/06/22 13:45 Room Air 05/06/22 13:30 Room Air 05/06/22 13:15 Room Air 05/06/22 13:00 Room Air 05/06/22 12:45 Room Air 05/06/22 12:30 Room Air 05/06/22 12:15 Room Air 05/06/22 12:00 Room Air 05/06/22 11:45 Room Air 05/06/22 11:30 Room Air Laboratory Results Laboratory Results - last 24 hr 05/06/22 05/06/22 05/06/22 06:12 07:44 11:09 POC pH 7.34 L POC pCO2 45 POC pO2 38 L POC HCO3 24 POC Total CO2 25 POC Base Excess -2.0 POC ABG O2 Sat 68.0 L Sodium 140 Potassium 3.9 Chloride 105 Carbon Dioxide 28 Anion Gap 7 BUN 25 H Creatinine 1.04 Est Cr Clr Drug Dosing 72.5 Est GFR ( Amer) 83.9 Est GFR (Non-Af Amer) 72.4 BUN/Creatinine Ratio 24.0 H Glucose 132 H POC Glucose 143 H Calcium 9.6 05/06/22 05/06/22 05/06/22 11:12 16:31 20:12 POC pH 7.36 POC pCO2 40 POC pO2 73 L POC HCO3 23 POC Total CO2 24 POC Base Excess -3.0 POC ABG O2 Sat 94.0 Sodium Potassium Chloride Carbon Dioxide Anion Gap BUN Creatinine Est Cr Clr Drug Dosing Est GFR ( Amer) Est GFR (Non-Af Amer) BUN/Creatinine Ratio Glucose POC Glucose 122 H 112 H Calcium PG Care Time/CCT Total # of Minutes Spent Total Time Spent with Patient: Total time spent is greater than 50% in coordination of care (as documented) at patient's floor/unit and/or counseling patient: Coding Level of Care Code 76720 SUB INP/OBS CARE 2/35MIN Diagnoses Palpitations R00.2 Cardiomyopathy I42.9 HTN (hypertension) I10 Diabetes E11.9 Asthma J45.909 Wide-complex tachycardia R00.0 Pulmonary hypertension I27.20 Elevated troponin R77.8 SOB (shortness of breath) R06.02 History of pulmonary embolism Z86.711
[2022-05-06] MEDS: ATORVASTATIN 20 MG TAB PO SCH (20:48)
[2022-05-07] MEDS: HEPARIN SOD 5,000 UNIT/0.5 ML VIAL SQ SCH (06:21)
[2022-05-07] MEDS: INSULIN ASPART PER UNIT SC SCH ×2 (08:18→12:04)
[2022-05-07] MEDS: METOPROLOL SUCC 50MG EXT REL TAB PO SCH (08:27)
[2022-05-07] MEDS: ASPIRIN 81 MG ECTAB PO SCH (08:27)
[2022-05-07] MEDS: lisinopril 20 MG TAB PO SCH (08:27)
[2022-05-07] MEDS: SPIRONOLACTONE 25 MG TAB PO SCH (08:28)
[2022-05-07] MEDS: CEROVITE ADV FORMULA TAB PO SCH (08:28)
[2022-05-07] MEDS ORDERED: LANTUS PER UNIT CHARGE SQ SCH (09:00)
[2022-05-07] MEDS: ACETAMINOPHEN 325 MG TAB PO PRN (09:01)
[2022-05-07 09:50] LABS: BUN Creatinine Ratio 23.5 (10-20); Calcium 9.7 mg/dl (8.5-10.1); Est GFR (African American) 90.2 ml/min; Est GFR (Non-African American) 77.8 ml/min
--- NOTE | 2022-05-07 12:34 | Discharge Summary ---
Date of Service date of admission - May 04, 2022 date of discharge - May 07, 2022 Admission HPI Per Admitting Provider Rich is a 71-year-old male with a past medical history of cardiomyopathy suspected due to viral illness, diabetes, PE, trigger finger, hyperlipidemia, hypertension who presented with 2 episodes of shortness of breath and palpitations morning of admission. Patient is followed by Dr. Yoder as outpatient who discussed patient's presentation and symptoms with the ER. On admission troponin is 15/ with an EKG not showing signs of acute ischemia, based on his history and palpitation has been recommended for overnight observation for dysrhythmia and troponin trending with echo. Pt reports has been in his usual state of health until this AM and got out of the shower when his heart started racing. Had cold sweats and chest was very tight around 8am. Layed back in the recliner chair and symptoms improved by ~8:45am. 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 Caem to the ER. No shortness of breath. No lightheadedness/dizzyness. No prior anginal symptoms. No weight gain. No problems with chest pain/chest pressure leading up to this. 2 artificial knees with some MSK pain, but no limiting angina/Barrera. Denies orthopnea Notes has been under more stress in the last week or two. Cardiomyopathy, 2nd to Coxsackie virus - 1997. Principal Diagnosis 1. Nonischemic Cardiomyopathy 2. Palpitations - concerning for arrhythmia - outpatient monitoring needed 3. NSVT Discharge Exam gen - pleasant, NAD mouth - MMM neck - no JVD heart - RRR, s1 s2, no murmur lungs - CTA b/l abd - soft NT ND BS+ ext - no edema, pulses 2+ b/l psych - a/o x 3 vascular - right radial artery w/o hematoma or aneurysm (cath site) Discharge Data Allergies Allergy/AdvReac Type Severity Reaction Status Date / Time adhesive Allergy Intermediate RED ITCHY Verified 05/04/22 15:51 SKIN, RASH latex Allergy Intermediate Rash Verified 05/04/22 15:51 nickel Allergy Intermediate "SKIN Verified 05/04/22 15:51 BUBBLES UP" Penicillins Allergy Intermediate "HIVES IN Verified 05/04/22 15:51 EARS" green pepper AdvReac Intermediate Vomiting Verified 05/06/22 08:05 hydrocodone [From Vicodin] AdvReac Intermediate "SWEATY, Verified 05/04/22 15:51 FAINTY" meperidine AdvReac Intermediate VOMITS Verified 05/04/22 15:51 metronidazole AdvReac Intermediate Diarrhea Verified 05/04/22 15:51 red dye AdvReac Intermediate Vomiting Verified 05/06/22 08:01 metformin AdvReac Unknown reacts Verified 05/04/22 15:51 with another med Preston Pepper AdvReac Intermediate VOMITS Uncoded 05/04/22 15:51 RED CONTRAST AdvReac Intermediate VOMITS Uncoded 05/04/22 15:51 Red Dye AdvReac Intermediate VOMIT Uncoded 05/04/22 15:51 Consultations [facility] Procedures Performed Operation Date: 05/06/22 11:00 Actual Procedures Cath, Right and Left Heart - Joshua Montenegro MD Findings: LM -normal caliber, no significant disease LAD -large caliber, midsegment luminal irregularities, distal vessel extends around apex. Medium D1 without significant disease. Circumflex -medium caliber, no significant disease. Medium OM1, large OM 3 without disease. RCA -dominant, large caliber, mid and distal luminal irregularities, mid segment ectatic. Medium PDA, PLB without significant disease RA 1 RV 22/2 PA 23/5 (11) PAWP 5 LV 13 PaSat 68% AoSat 94% Abdiel CO/CI 7/3.4 Thermo CO/CI 5.1/2.5 Arterial Closure: TR band Summary: 1. Essentially normal coronary arteries angiographically. 2. Normal left and right-sided filling pressure. 3. Normal pulmonary artery pressures. 4. Normal cardiac output. Echocardiogram - Ordered Studies Chest X-Ray 05/04/22 12:06 XR chest 1V portable CLINICAL HISTORY: Dysrhythmia TECHNIQUE: Single frontal radiograph of the chest was obtained. Comparison: Comparison is made to chest radiograph 11/19/2018 FINDINGS: No lines and tubes are seen. The cardiomediastinal silhouette is normal. The lungs are clear. No evidence of pleural effusion or pneumothorax. IMPRESSION: No acute chest disease. ACT 112: Negative or not required by law. Electronically signed by: Jaime Rios M.D. 05/04/2022 12:37 PM Chest CTA 05/05/22 15:42 CT angio chest PE protocol CLINICAL HISTORY: episodes of palpitations, prior PEs TECHNIQUE: Multidetector row helical CT of the chest was performed with angiographic protocol. Coronal and sagittal reformations were obtained. Coronal and sagittal MIPS were obtained from the axial data set and were submitted for review. Automated dose lowering techniques and/or adjustment according to patient size were utilized for this exam. CT DOSE: 479.82 mGy.cm Comparison: Comparison is made to CT chest 12/03/2014 FINDINGS: Lungs and pleura: Normal. Heart and pericardium: Heart size is normal. No pericardial effusion. Vessels: No evidence of pulmonary embolism. Mediastinum and williams: Subcentimeter lymph nodes are seen. Chest wall and lower neck: Unremarkable. Abdomen: Unremarkable. Bones: Degenerative changes in the thoracic spine. IMPRESSION: No acute abnormalities and in particular no evidence of pulmonary embolus. ACT 112: Negative or not required by law. Electronically signed by: Jaime Rios M.D. 05/05/2022 8:20 PM Hospital Course (1) Palpitations: Following admission telemetry showed numerous PACS, PVCs, and 1 run of probable NSVT (<10 beats). He had no symptoms during the NSVT. He had no additional runs of wide complex tachycardia. CTA chest negative for PE. Left and Right heart cath were negative for pulmonary HTN or CAD. TSH was wnl. He remains on beta reji as previous. However, the dose of metoprolol succinate was increased to 100mg/day. Plan is for 30-day event monitor post-discharge as his episodes of palpitations are still concerning for arrhythmia. If episodes persist - especially with chills/sweats - and if monitoring is negative - could consider w/u for pheochromocytoma but doubt he has such. (2) Cardiomyopathy: Initial dx of dilated cardiomyopathy in 1997. He specifically mentions perhaps a viral etiology - ?coxsackie. It appears he may have a genetic component as well as both sons are carriers of a genetic mutation that lends itself to cardiomyopathy but neither have actually developed any cardiac disease. Previously followed by Drs. Arevalo and Jose at [facility] [place]. Initial EF was 15% in 1997. Cardiac cath at [facility] did not show obstructive CAD at that time. Had cardiac MRI as part of his w/u. s/p cardiac biopsy at that time which was negative for specific etiology for his cardiomyopathy. Records from [facility] obtained -- echo 05/26/17 - EF 55%; no LVH; no WMA; grade 1 diastolic dysfunction. Dobutamine stress echo 2018 - EF was 65% on resting images. Now with EF 35-40% on this admission's echo. Etiology uncertain. Clinical picture not c/w stress-induced cardiomyopathy. 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 Cont BB at higher dose (metoprolol succinate 100mg daily). Cont lisinopril 20mg daily but ultimate plan is a transition to Entresto. Cont aldactone - dose was increased from 12.5mg to 25mg daily. Patient was compensated the entire stay. He will need close follow-up with [facility] [place] for these issues. (3) Wide-complex tachycardia: see above in #1 <10 beat run evening of 05/04/22 no runs since that time plan - outpatient 30-day event monitor continue beta reji (4) HTN (hypertension): Controlled. Cont metoprolol succinate -- dose was increased from 50mg daily to 100mg daily. Cont ANGEL LUIS. Cont aldactone -- dose was increased from 12.5mg to 25mg daily. (5) Diabetes: Recent Hba1c 7.3% Patient was asked to continue dietary control as previous. (6) Asthma: no flare at this time CT chest w/o pathology (7) Pulmonary hypertension: right heart cath with normal right heart findings and normal PA pressures (8) Elevated troponin: 2nd to myocardial demand ischemia - likely from #1 above no evidence for ACS normal left heart cath (ie normal coronaries) no evidence of myocarditis or pericarditis peak HS troponin = 27 (normal <20) (9) SOB (shortness of breath): CTA chest neg for PEs, pneumonia, pulm edema, etc (10) History of pulmonary embolism: 2008 - in setting of colon cancer none seen on CTA chest this admission Total Time Total Time Spent Total Time Spent (In Minutes): 40 Discharge Plan Discharge Items Patient Disposition: Home - Self-Care Reason For Visit: HEART PALPITATIONS, COLD SWEATS Discharge Diagnosis: 1. heart palpitations - suspected to be due to arrhythmia - outpatient monitoring will be needed 2. nonischemic cardiomyopathy with ejection fraction of 35-40% 3. normal coronary arteries on heart catheterization 4. type 2 diabetes - recent hemoglobin a1c 7.3% Activity: As commented below Activity Comment: no heavy exertional activities until cleared by cardiology Lifting: No more than 10 pounds Sexual Activity: Wait until after follow-up appointment Exercise/Sports: Wait until after follow-up appointment Driving/Machine Use: Resume 3 days after discharge Non-emergency contact: Primary Care Provider and Volleyball Referee Call non-emergency contact if: you have any medication questions and your symptoms worsen Follow-up/Referrals: Raffi Yoder MD [Physician] - 05/20/22 8:30 am (1-2 weeks for follow-up of cardiomyopathy) Jhonathan Villa MD [Primary Care Provider] - 05/11/22 11:30 am (5-7 days ) Diet: Carb Consistent or DM2 and Heart Healthy Fluids: 1800ml (7 cups) Addtl Attending Provider Instructions: Mr Kelsey, Gerson were hospitalized due to having frequent episodes of palpitations associated with sweats. There was no evidence of heart attack or blood clots of the lungs (CT scan of the chest was normal). While on the heart monitor you had PACs (premature atrial contractions, or extra beats originating from the top part of the heart), PVCs (premature ventricular contractions, or extra beats originating from the bottom portion of the heart), and 1 brief episode of "nonsustained ventricular tachycardia" (7 beats only). PACs and PVCs are benign and not harmful, but many people do feel these as palpitations. The numbers of these extra beats can sometimes increase with too much caffeine use and during periods of stress. It is not clear if the PACs/PVCs were the cause of your symptoms. We are more concerned that you were having episodes of sustained/prolonged arrhythmias. Other than the brief run of nonsustained ventricular tachycardia we did not see any other sustained episodes of arrhythmia on monitoring during the hospital stay. On 05/06/22 Dr Joshua Montenegro performed heart catheterization and this was entirely normal. Your coronary arteries are healthy and free of any plaque. Anatoliy Alberts and Beba from [facility] recommended the following for your heart medication regimen - * INCREASE your metoprolol succinate from 50mg daily to 100mg daily; start this tomorrow AM, 05/08/22 * INCREASE your spironolactone from 12.5mg daily to 25mg daily; start this tomorrow AM, 05/08/22 * continue your lisinopril at your current dose; Dr Yoder plans to change this in the future to Entresto Dr Yoder plans to perform an outpatient 30-day monitor to rule out arrhythmia/abnormal heart rhythms. We will arrange this for you next week. With respect to your type 2 diabetes I would recommend diet control only at this time. Please see handouts on diabetic meal planning, etc. Please check your blood sugar twice daily - first thing in the morning, and then 1 other time during the day. Please vary the timing of your 2nd blood sugar check - on some days check it before bedtime, on others before dinner, etc. Please see Dr Villa to discuss further your diabetes. Until you see Dr Yoder in follow-up - please, NO HEAVY EXERTIONAL activities. Light walks are fine. Continue to check your weight every morning as you were previously doing. If you gain more than 2-3 pounds over a 1-[address] Yoder know right away as this may be your first sign you are retaining fluid from congestive heart failure. Follow-up - see separate section Return to [facility] if - * you experience recurrent, worsening palpitations - especially episodes that are long in duration (longer than 10-15 minutes) * you have dizziness or lightheadedness * you have any concerns about rapid fluid retention * you have chest pains or shortness of breath * any other concerns It was our pleasure to care for you! -Dr London Addtl Component Design Engineer Provider Instructions: ACTIVITY RECOMMENDATIONS following your heart catheterization: It is common to feel weak and fatigue for a few days. * Do not drive or operate any motorized equipment for the next three days. * Limit stair usage (2 or 3 trips a day only) for the next three days. * Do not lift anything heavier than 10 pounds for the next three days. * Do not engage in vigorous exercise or any sports until cleared by Dr Yoder. Light walks are OK. * You may shower the day after your procedure, but do not immerse the RIGHT WRIST area for three days. Thus, no tub baths, swimming, or doing dishes for the next three days. Cleanse the site gently with soap and water. SPECIAL CARE INSTRUCTIONS: * You may replace the pressure dressing or band-aid the morning after the procedure. * After your procedure, it is normal to have a small bruise or small lump at the site. Examine your site daily for any change in the bruise or lump, redness, swelling, drainage or numbness. Notify your doctor if any change. BLEEDING: * If there is a small amount of bleeding at the site, lie down and apply firm pressure with a clean cloth for ten minutes. When the bleeding stops, lie quietly keeping the procedure limb straight for six hours. Notify your doctor as soon as possible. * If the bleeding does not stop after ten minutes or if there is a large amount of bleeding or spurting, call 911 immediately. Continue to lie down and hold firm pressure until help arrives. SKIN IRRITATION: * You may experience some redness and/or swelling in the area where radiation was administered. If any skin irritation occurs, please contact your family physician. ------- Call 911 and go to the Emergency Room if: * You have tightness or pain in your chest that does not go away with rest * You are very short of breath even with rest Call your doctor if any of the following symptoms or problems start or get worse: * Shortness of breath or difficulty breathing * Wake up at night short of breath * Chest pain * Cough * Swelling of your hands, fee, or legs * More fatigued or tired with your normal activity * Palpitations - sudden fast heart beats WEIGHT * Weigh yourself every morning after using the bathroom. * Use the same scale. * Wear the same amount of clothing. * Write your weight down on your chart. * Call your doctor if you gain more than 2-3 pounds in 1-2 days. MEDICATIONS * Use this discharge instruction sheet for instructions. * Take your medications at the time your doctor ordered. * Do not skip a dose of your medicines. * If you miss a dose of medicine, take as soon as possible, but DO NOT DOUBLE A DOSE. * Read your medicine information when you get home. * Know all of the side effects of your medicine. * Call your doctor's office if you have any side effects. * Be sure all of your doctors know what medicine and herbs you take (including cold, flu, and herbal medicine). * Pain Medicine: If you do not get relief from your pain, please call your doctor for help. Take the following with you to your follow-up doctor appointments: * Weight Chart * Medication List * List of questions Do not drink excessive alcohol, beer or wine. Pending Studies at Discharge: No Stand-Alone Forms: My [employer], Smoking Cessation Medications and DC Order Prescriptions: Continued fluticasone propion-salmeterol [Advair Diskus] 250-50 mcg/dose Blister With Device 1 inh INHALATION BID PRN (Reason: Shortness Of Breath Or Wheezing) Patient Comments: USES IN WITNER MONTHS ascorbic acid (vitamin C) [Vitamin C] 1,000 mg Tablet 1 dose PO TID atorvastatin 20 mg Tablet 20 mg PO HS lisinopril [Zestril] 20 mg Tablet 20 mg PO QAM saw palmetto 160 mg Capsule 1 dose PO QDL omeprazole magnesium [Prilosec OTC] 20 mg Tablet,Delayed Release (Dr/Ec) 20 mg PO QDL Zyrtec 10 mg Capsule 10 mg PO QAM arginine (L-arginine) 500 mg Tablet 500 mg PO QDL Centrum Silver 0.4-300-250 mg-mcg-mcg Tablet 1 tab PO QAM aspirin 81 mg Tablet,Delayed Release (Dr/Ec) 81 mg PO TID omega-3 fatty acids 500 mg Capsule 0 mg PO TID Rx Instructions: PER PT "THEY ARE FISH OIL MINI TABS, THINK 600 MG, NOT SURE". Trypsin 100 mg PO QDL Changed metoprolol succinate 100 mg tablet extended release 24 hr 100 mg PO DAILY Qty: 30 1RF spironolactone 25 mg Tablet 25 mg PO QAM Qty: 30 1RF Discontinued sildenafil 100 mg tablet 100 mg PO DIRECTED PRN (Reason: Erectile Dysfunction) Patient Comments: 100 mg PO DAILY 1 HOUR BEFORE NEEDED; Rx Instructions: 100 mg PO DAILY 1 HOUR BEFORE NEEDED; Discharge Orders: Discharge Order (Routine); Ordered 05/07/22 Ordered By: Wilner Lara/Other Patient Handouts: Healthy Meals for Diabetes, Diabetes Serving Portion Sizes, Diabetes: Meal Planning Admission Data Admit Date/Time: 05/06/22 19:10 Attending Provider: Wilner London Admit Provider: Efrain Davenport Primary Care Provider: Jhonathan Villa Other Providers: Efrain Davenport ; Gene Alberts ; Raffi Yoder ; Dirk Montenegro Other Interventions: Discharge Summary Assessment (RN) Last Done: 05/07/22 12:41 Coding Level of Care Code 19562 INP/OBS DISCH >30 MIN Diagnoses Palpitations R00.2 Cardiomyopathy I42.9 Wide-complex tachycardia R00.0 HTN (hypertension) I10 Diabetes E11.9 Asthma J45.909 Pulmonary hypertension I27.20 Elevated troponin R77.8 SOB (shortness of breath) R06.02 History of pulmonary embolism Z86.711
== END 2022-05-07 14:25 | disposition home or self-care (01) | DRG 287 ==
LOC: ED 11:25 → 2N 11:25 → SUATTDRO 16:24 → 2N 17:08 → 2S 05-06 14:11
DX: Z79.82 Long term (current) use of aspirin; Z87.891 Personal history of nicotine dependence; Z88.8 Allergy status to other drugs, medicaments and biological substances; Z88.1 Allergy status to other antibiotic agents; I47.20 Ventricular tachycardia, unspecified; Z91.041 Radiographic dye allergy status; Z79.899 Other long term (current) drug therapy; Z91.018 Allergy to other foods; Z91.040 Latex allergy status; R06.02 Shortness of breath; J45.909 Unspecified asthma, uncomplicated; Z86.711 Personal history of pulmonary embolism; Z88.0 Allergy status to penicillin; Z91.048 Other nonmedicinal substance allergy status; Z82.49 Family history of ischemic heart disease and other diseases of the circulatory system; I42.8 Other cardiomyopathies; Z86.718 Personal history of other venous thrombosis and embolism; I11.9 Hypertensive heart disease without heart failure; I24.8 Other forms of acute ischemic heart disease; Z88.5 Allergy status to narcotic agent; E11.9 Type 2 diabetes mellitus without complications; I27.20 Pulmonary hypertension, unspecified